=== PATIENT | female | born 1970 | race Caucasian/White ===

== ENCOUNTER 2020-02-26 11:00 | Outpatient (CLI) | payer OTHER, SELFPAY ==
--- NOTE | ~2020-02-26 | XR_ITS ---
EXAMINATION: XR sacrum coccyx min 2V INDICATION: Sacrococcygeal disorders TECHNIQUE: Three views of the sacrum and coccyx are obtained. COMPARISON: None available FINDINGS: No fracture is identified. The coccyx demonstrates slight posterior positioning relative to the sacrum which is within spectrum of normal radiographic appearance. There are phleboliths of the pelvis. IMPRESSION: 1. No acute osseous abnormality. Reviewed, dictated and finalized at location A.
== END 2020-02-26 11:01 | disposition home or self-care (01) ==
PROVIDERS: PCP Internal Medicine; Visit Provider Internal Medicine
DX: M53.3 Sacrococcygeal disorders, not elsewhere classified (principal)
CPT/HCPCS: 72220

== ENCOUNTER 2020-04-12 15:03 | Outpatient (CLI) | payer OTHER, SELFPAY ==
--- NOTE | ~2020-04-12 | MM_ITS ---
EXAMINATION: MM screening steffen BI w june HISTORY: Screening mammogram TECHNIQUE: Craniocaudal and mediolateral oblique 3-D tomosynthesis images were obtained and synthetic 2-D images were generated. CAD analysis was submitted and interpreted. COMPARISON: Comparison to multiple prior studies sequentially, with oldest reviewed study dated 08/06. BREAST PARENCHYMAL COMPOSITION: There are scattered areas of fibroglandular density. FINDINGS: Stable focal asymmetry in the right breast and coarse benign left breast calcifications. Th ere is no evidence of suspicious mass, calcification, or architectural distortion to suggest malignan cy in either breast. There has been no suspicious interval change. IMPRESSION: 1. No mammographic evidence of malignancy. 2. Recommend routine screening mammography in one year. BI-RADS Category 2: Benign finding(s). Reviewed, dictated and finalized at location A.
== END 2020-04-12 15:04 | disposition home or self-care (01) ==
LOC: ANHIMG 15:05
PROVIDERS: PCP Internal Medicine; Visit Provider Obstetrics & Gynecology
DX: Z12.31 Encounter for screening mammogram for malignant neoplasm of breast (principal)
CPT/HCPCS: 77063; 77067

== ENCOUNTER 2021-04-28 08:24 | Outpatient (CLI) | payer OTHER, SELFPAY ==
--- NOTE | ~2021-04-28 | MM_ITS ---
EXAMINATION: MM screening steffen BI w june HISTORY: Screening mammogram TECHNIQUE: Craniocaudal and mediolateral oblique 3-D tomosynthesis images were obtained and synthetic 2-D images were generated. CAD analysis was submitted and interpreted. COMPARISON: 04/12/2020, 12/12/2018, 05/24/2015 bilateral digital screening mammogram examinations BREAST PARENCHYMAL COMPOSITION: There are scattered areas of fibroglandular density. FINDINGS: There is a biopsy marker adjacent to a stable approximately 13 mm right breast mass; report edly benign biopsy. Stable circumscribed outer mid right approximately 6 mm lymph node. Stable partially calcified approximately 4.5 mm adenoma in the anterior outer mid right breast. Stabl e larger probably calcified fibroadenoma in the lower posterior outer mid left breast. Occasional sma ll low-density circumscribed benign opacities are noted on the left. There is no evidence of suspicious mass, calcification, or architectural distortion to suggest malign bert in either breast. There has been no suspicious interval change. IMPRESSION: 1. No mammographic evidence of malignancy; no significant change since 05/25/2015. 2. Recommend routine screening mammography in one year. BI-RADS Category 2: Benign finding(s). Reviewed, dictated and finalized at location A. IMPRESSION: 1. No mammographic evidence of malignancy; no significant change since 5. 2. Recommend routine screening mammography in one year. BI-RADS Category 2: Benign finding(s).
== END 2021-04-28 08:25 | disposition home or self-care (01) ==
LOC: ANHIMG 08:26
PROVIDERS: PCP Internal Medicine; Visit Provider Obstetrics & Gynecology
DX: Z12.31 Encounter for screening mammogram for malignant neoplasm of breast (principal)
CPT/HCPCS: 77063; 77067

== ENCOUNTER 2022-02-27 10:35 | Outpatient (CLI) | payer OTHER, SELFPAY ==
--- NOTE | ~2022-02-27 | US_ITS ---
EXAMINATION: US abdomen limited DATE: 02/27/2022 11:24 INDICATION: Personal history of malignant neoplasm TECHNIQUE: Multiple grayscale and Doppler ultrasound images of the abdomen were obtained. COMPARISON: None available FINDINGS: The head, body, and tail of the pancreas are normal. The liver is normal with normal echoge nicity and echotexture. No surface nodularity. Normal hepatopetal flow in the main portal vein. The g allbladder is normal with no abnormal wall thickening, pericholecystic fluid or stones. The normal co mmon bile duct measures 3 mm. There was no sonographic Quesada sign. Cystic lesions are noted in the u pper pole of the right kidney which measure up to 3.1 cm. IMPRESSION: 1. Normal sonographic study of the gallbladder. 2. Indeterminate cystic lesions of the right kidney upper pole. Consider dedicated kidney ultrasound. Reviewed, dictated and finalized at location F. IMPRESSION: 1. Normal sonographic study of the gallbladder. 2. Indeterminate cystic lesions of the right kidney upper pole. Consider ded[facility] benoit kidney ultrasound.
== END 2022-02-27 10:36 | disposition home or self-care (01) ==
PROVIDERS: PCP Internal Medicine; Visit Provider Nurse Practitioner
DX: Z85.09 Personal history of malignant neoplasm of other digestive organs (principal)
CPT/HCPCS: 76705

== ENCOUNTER 2022-03-13 09:48 | Outpatient (CLI) | payer OTHER, SELFPAY ==
--- NOTE | ~2022-03-13 | US_ITS ---
EXAMINATION: US renal BI DATE: 03/13/2022 10:44 INDICATION: N28.1 - Cyst of kidney, acquired TECHNIQUE: Multiple grayscale and Doppler ultrasound images of the abdomen were obtained. COMPARISON: Ultrasound abdomen 02/27/2022. FINDINGS: The right kidney measures 12.2 x 6.2 x 6.2 cm. The left kidney measures 11.1 x 5.3 x 6.9 cm. The kidn eys demonstrate normal parenchymal echogenicity.No sonographic evidence of nephrolithiasis. 2.9 cm lo bulated mid to lower pole mass with possible septations and mural nodularity. 3.0 cm simple right upp er pole cyst. No hydronephrosis. The bladder is unremarkable. IMPRESSION: 1. Indeterminate right mid/lower pole renal mass. Recommend CT or MRI with renal mass protocol for fu rther evaluation. Reviewed, dictated and finalized at [facility]. IMPRESSION: 1. Indeterminate right mid/lower pole renal mass. Recommend CT or MRI with arnulfo l mass protocol for further evaluation.
== END 2022-03-13 09:49 | disposition home or self-care (01) ==
PROVIDERS: PCP Internal Medicine; Visit Provider Nurse Practitioner
DX: N28.1 Cyst of kidney, acquired (principal)
CPT/HCPCS: 76775

== ENCOUNTER 2022-04-01 13:12 | Outpatient (CLI) | payer OTHER, SELFPAY ==
--- NOTE | ~2022-04-01 | MR_ITS ---
EXAMINATION: MR abdomen wo/w con DATE: 04/01/2022 14:37 INDICATION: Other specified disorders of kidney and ureter. Right kidney mass. TECHNIQUE: Magnetic resonance imaging (MRI) of the abdomen was performed without and with 18 mL Multi Nate intravenous contrast. COMPARISON: Ultrasound kidneys 03/13/2022 FINDINGS: The liver, gallbladder, and pancreas are normal. There is a 13 mm cyst in the spleen. The adrenal gla nds are normal. There are hemorrhagic cysts in the kidneys measuring up to 2.5 cm on the right. There is a 3.0 cm cyst in right kidney. There are no dilated loops of bowel. There are no pathologically e nlarged lymph nodes. There is no free intraperitoneal fluid. IMPRESSION: 1. Benign cysts in the kidneys. Reviewed, dictated and finalized at location A.
[2022-04-01 13:56] LABS: Estimated Glomerular Filt Rate > 60
== END 2022-04-01 13:13 | disposition home or self-care (01) ==
PROVIDERS: PCP Internal Medicine; Visit Provider Nurse Practitioner
DX: N28.89 Other specified disorders of kidney and ureter (principal)
CPT/HCPCS: 74183; A9577

== ENCOUNTER 2023-06-13 13:12 | Outpatient (CLI) | payer BC, SELFPAY ==
--- NOTE | ~2023-06-13 | US_ITS ---
Duplex Sonography of the right extremity: Indication: Pain Findings: Sagittal and transverse B-mode images as well as color-flow imaging were performed on the r ight femoral and popliteal veins. B-mode examination was done without and with compression in the tr ansverse plane. There is good visualization of the common femoral, proximal profunda femoral, superf icial femoral, greater saphenous, and popliteal veins. Normal flow was seen on color-flow imaging. N ormal compressibility was demonstrated. Visualized calf veins are also patent. Impression: No evidence of deep vein thrombosis involving the right lower extremity. Reviewed, dictated and finalized at location M. Impression: No evidence of deep vein thrombosis involving the right lower extremity.
--- NOTE | ~2023-06-13 | XR_ITS ---
Right Knee Technique: AP, lateral, and sunrise views were obtained. Clinical History: Pain Findings: No fracture or dislocation is seen. There is medial compartment hemiarthroplasty present. T here is mild to moderate degenerative spurring of the lateral joint line and patellofemoral compartme nt. Soft tissues are unremarkable. No joint effusion is seen. Impression: No acute fracture or dislocation. Medial compartment hemiarthroplasty. Mild to moderate degenerative change of the lateral and patellofemoral compartments, as above. Reviewed, dictated and finalized at location M. Impression: No acute fracture or dislocation. Medial compartment hemiarthroplasty. Mild to moderate degenerative change of the lateral and patellofemoral compartm ents, as above.
== END 2023-06-13 13:13 | disposition home or self-care (01) ==
PROVIDERS: PCP Internal Medicine; Visit Provider Nurse Practitioner
DX: M79.604 Pain in right leg (principal); M25.569 Pain in unspecified knee
CPT/HCPCS: 73564; 93971

== ENCOUNTER 2023-08-24 08:07 | Outpatient (CLI) | payer BC, SELFPAY ==
[2023-08-24 15:00] LABS: Basophils Percent Auto 0.4 % (0.2-1.2); Eosinophils Absolute Auto 0.1 K/mm3 (0-0.3); Eosinophils Percent Auto 0.9 % (0-4.4); Hematocrit 40.8 % (37.0-47.0); Hemoglobin 13.1 g/dL (12.0-15.0); Immature Granulocyte Absolute 0.02 K/mm3 (0.00-0.031); Immature Granulocyte Percent A 0.3 % (0-0.5); Lymphocytes Absolute Auto 2.19 K/mm3 (0.9-3.2); Mean Corpuscular HGB Conc 32.1 g/dl (32-36); Mean Corpuscular Hemoglobin 28.9 pg (26-34); Mean Corpuscular Volume 89.9 fl (80-100); Mean Platelet Volume 10.1 fl (7.4-10.4); Monocytes Absolute Auto 0.7 K/mm3 (0.1-0.6); Monocytes Percent Auto 9.3 % (2.6-8.5); Neutrophils Absolute Auto 4.8 K/mm3 (1.3-6.7); Neutrophils Percent Auto 61.1 % (45.5-73.1); Platelet Count Result 284 k/mm3 (150-375); Red Blood Count 4.54 M/mm3 (4.2-5.4); Red Cell Distribution Width 13.5 % (11.5-14.5); White Blood Count 7.8 K/mm3 (4.5-10.0)
[2023-08-24 15:05] LABS: Alanine Aminotransferase 28 U/L (6-35); Albumin Level 4.4 g/dL (3.5-5.1); Alkaline Phosphatase 112 U/L (38-126); Anion Gap 9 mmol/L (8-16); Aspartate Amino Transferase 40 U/L (14-36); Bilirubin,Total 0.5 mg/dL (0.2-1.3); Blood Urea Nitrogen 14 mg/dL (7-17); Calcium 9.3 mg/dL (8.4-10.2); Carbon Dioxide 27 mmol/L (22-30); Chloride 104 mmol/L (98-107); Cholesterol 236 mg/dL (0-200); Estimated Glomerular Filt Rate > 60; Glucose 100 mg/dL (65-110); HDL Direct 37 mg/dL; Potassium 3.6 mmol/L (3.4-5.0); Sodium 140 mmol/L (137-145); Triglycerides 192 mg/dL (<150)
[2023-08-24 15:16] LABS: LDL Cholesterol Direct 141 mg/dL
[2023-08-24 16:44] LABS: Vitamin D 25 Hydroxy 37.6 ng/mL
== END 2023-08-24 08:08 | disposition home or self-care (01) ==
LOC: ANHGOSHLAB 08:09
PROVIDERS: PCP Internal Medicine; Visit Provider Clinical Nurse Specialist
DX: Z13.228 Encounter for screening for other metabolic disorders (principal); E55.9 Vitamin D deficiency, unspecified; I10 Essential (primary) hypertension; E78.5 Hyperlipidemia, unspecified
CPT/HCPCS: 36415; 80053; 80061; 82306; 84443; 85025

== ENCOUNTER 2023-12-13 16:07 | Outpatient (CLI) | payer OTHER, SELFPAY ==
--- NOTE | ~2023-12-13 | CT_ITS ---
EXAMINATION:CT diagnostic chest wo con DATE: 12/13/2023 16:40 INDICATION: Solitary pulmonary nodule. TECHNIQUE: Computed tomography (CT) of the chest was performed without intravenous contrast. Automate d exposure control and iterative reconstruction technique were employed. The dose-length product (DLP ) was 238.44 mGy-cm. COMPARISON: Abdomen MRI 04/01/2022 FINDINGS: There is a 4 mm nodule in right lung upper lobe. There is a 4 mm nodule in left lower lobe. There is minimal atelectasis in the lungs. No pleural effusion. The heart size is normal. No pericar dial effusion. There is a 2.3 cm hemorrhagic cyst in right kidney. There is moderate thoracic spondyl osis. IMPRESSION: 1. Small pulmonary nodules, likely benign. 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
== END 2023-12-13 16:08 | disposition home or self-care (01) ==
LOC: ANHIMG 16:14
PROVIDERS: PCP Internal Medicine; Visit Provider Nurse Practitioner
DX: R91.8 Other nonspecific abnormal finding of lung field (principal)
CPT/HCPCS: 71250

== ENCOUNTER 2024-01-04 09:06 | Outpatient (CLI) | payer OTHER, SELFPAY ==
[2024-01-04 19:27] LABS: Free T4 Free Thyroxine 1.19 ng/mL (0.78-2.19)
[2024-01-04 19:47] LABS: Thyroid Stimulating Hormone 0.888 uIU/mL (0.465-4.680)
[2024-01-09 07:32] LABS: Triiodothyronine T3 Free 3.1 pg/mL (2.3-4.2)
== END 2024-01-04 09:07 | disposition home or self-care (01) ==
LOC: ANHGOSHLAB 09:07
PROVIDERS: PCP Internal Medicine; Visit Provider Nurse Practitioner
DX: R53.83 Other fatigue (principal)
CPT/HCPCS: 36415; 84439; 84443; 84481

== ENCOUNTER 2024-01-31 09:12 | Outpatient (CLI) | payer OTHER, SELFPAY | END 2024-01-31 09:13 | disposition home or self-care (01) | LOC: ANHAUDIO 09:13 | PROVIDERS: PCP Internal Medicine; Visit Provider Nurse Practitioner | DX: H93.19 Tinnitus, unspecified ear (principal); H90.3 Sensorineural hearing loss, bilateral | CPT/HCPCS: 92557; 92567 ==

== ENCOUNTER 2025-01-14 08:30 | Outpatient (CLI) | payer OTHER, SELFPAY ==
--- OUTSIDE RECORDS SUMMARY | 2025-01-14 08:51 | XMS_ITS | Encounter Summary ---
Author Organization [facility] Address [address] [place] [address] Care Team Providers Care Photogrammetric Stereo Compiler Name Role Phone Lorenzo Lindsay MD Primary Care Provider [phone] Edilberto Estrada DO Primary Care Provider [phone] Lorenzo Lindsay MD Primary Care Provider [phone] Edilberto Estrada DO Primary Care Provider [phone] Encounter Details Date Type Department Care Team (Late st Contact Info) Description 12/09/2022 Ophth Exam [facility] [address] [place] [address] Edie Casillas DO [address] [place] [id number] Social History Tobacco Use Types Packs/Day Years Used Date Smoking Tobacco: Never Smokeless Tobacco: Never Alcohol Use Standard Drinks/Week Comments Not Currently 0 (1 standard drink = 0.6 oz pur e alcohol) AUDIT-C Answer Date Recorded Q1: How often do you have a drink containing alc ohol? Monthly or less 12/06/2022 Average Number of Drinks Not on file 023 Frequency of Binge Drinking Not on file 11/2022 Overall Financial Resource Strain (CARDIA) Answe r Date Recorded How hard is it for you to pa y for the very basics like food, housing, medical care, and heating? Not hard at all 12/08/2022 [facility] [place] [facility] - Occupational Stress Questionnaire Answer Date Recorded Do you feel stress - tense, restless, nervous, or anxious, or unable to sleep at night because your mind is troubled all the time - these days? Not at all 12/08/2022 Hunger Vital Sign Answer Date Recorded Within the past 12 months, y ou worried that your food would run out before you got the money to buy more. Never true 12/08/19 23 Within the past 12 months, t he food you bought just didn't last and you didn't have money to get more. Never true 12/08/2022 PRAPARE - Transportation Answer Date Re corded In the past 12 months, has l ack of transportation kept you from medical appointments or from getting medications? No 01/2023 In the past 12 months, has l ack of transportation kept you from meetings, work, or from getting things needed for daily living? No 12/08/2022 Housing Stability Vital Sign Answer Dimitris e Recorded In the last 12 months, was t here a time when you were not able to pay the mortgage or rent on time? No 12/08/2022 In the last 12 months, how many places have you lived? 1 12/08/2022 In the last 12 months, was t here a time when you did not have a steady place to sleep or slept in a chcf (including now)? No 12/08/2022 Sex and Gender Information Value Date Recorded Sex Assigned at Not on file Gender Identity Not on file Sexual Orientation Not on file documented as of this encounter Functional Status Functional Status Response Date of Assess ment Is person deaf or have serious hearing difficult y? No 12/08/2022 Is person blind or have serious difficulty seein g? No 12/08/2022 Does person have serious dif ficulty walking/climbing stairs? No 12/08/2022 Does person have difficulty dressing/bathing? No 12/08/2022 Does person have difficulty doing errands alone? No 12/08/2022 Cognitive Status Response Date of Assessm ent Does person have difficulty concentrating/remembering/making decisions? No 12/08/2022 documented as of this encounter Plan of Treatment Not on file documented as of this encounter Visit Diagnoses Not on filedocumented in this encounter Care Teams Photogrammetric Stereo Compiler Relationship Specialty Start Date End Date Lorenzo Lindsay MD [address] [place] [phone] PCP - General 03/21/18 12/20/22 Edilberto Estrada DO [address] [place] [address] PCP - General 12/21/22 01/10/23 Lorenzo Lindsay MD [address] [place] [phone] PCP - General 01/11/23 01/24/23 Edilberto Estrada DO [address] [place] [phone] PCP - General 01/25/23 documented as of this encounter
--- OUTSIDE RECORDS SUMMARY | 2025-01-14 08:52 | XMS_ITS ---
Author Organization [facility] Address [address] [place] [address] Care Team Providers Care Channel Specialist Name Role Phone Tiana Toussaint Primary Care Provider Kenroy Montelongo Unavailable [phone] Tiana Toussaint MD Unavailable Unavailable REASON FOR VISIT MANUEL Vital Signs Temperature 98 degrees Fahrenheit 01/22/2024 Weight 206 lbs 01/22/2024 Weight-kg 93.44 kg 01/22/2024 Encounters Encounter Location Date Provider Diagnosis [facility] [address] [place] [address] 01/22/2024 Kenroy Montelongo Plan Of Treatment No Information Progress Notes * Stephanie MAURERDOB:1970 (54 yo F)Acc No.[id number]:01/22/2024 Medical Examination Patient: Stephanie AMOS Provider: Nguyen MONTELONGO MD :1970 A ge:54 Y S ex:Female Date:01/22/2024 Address:[address] [place] [address] Pcp:Tiana Toussaint Subjective: * Chief Complaints: * 1 . MANUEL. * Medical History: Objective: * Vitals: T emp:98F, Wt:206lbs, Wt-k.44 kg. Assessment: Plan: * Treatment: * Billing Information: * Visit Code: * Procedure Codes: * Electronic signature of Darrel Montelongo MD on 01/14/2025 at 08:52 AM CDT Sign off status: Pending * Provider: Nguyen MONTELONGO MD Date: 0 01/22/2024 Generated for Isaak spaulding/Fernando/Normaitting on: 0 01/14/2025 08:52 AM CDT
--- OUTSIDE RECORDS SUMMARY | 2025-01-14 08:52 | XMS_ITS ---
Author Organization [facility] [employer] Address [address] [facility] [address] [place] [address] Care Team Providers Care Mitering Machine Operator Name Role Phone Eloisa Astorga Unavailable [phone] Encounters Encounter Location Date Provider Diagnosis [facility] [employer] [facility] [address] [facility] [address] [place] [address] 06/16/2024 Eloisa Astorga Plan Of Treatment No Information Progress Notes * JADEN GAYLE ADOB: [birth year] (54 yo F)Acc No.[id number]:06/16/2024 Patient: RITA AMOSBERODILIA Cedillo :1970 A ge:54 Y S ex:Female Address:[address] [place] [address], [phone] Subjective: * Chief Complaints: * * Medical History: * Surgical History: * Hospitalization/Major Diagno stic Procedure: * Medications: Objective: * Vitals: * Physical Examination: Assessment: Plan: * Treatment: * Procedure Codes: * true * Date: Generated for Printi ng/Faxing/eTransmitting on: 0 01/14/2025 08:51 AM CDT
--- OUTSIDE RECORDS SUMMARY | 2025-01-14 08:52 | XMS_ITS | Patient Health Record ---
Author Organization [facility] Address [address] [place] [address] Care Team Providers Care Tube Closing Machine Operator Name Role Phone Tiana Toussaint Primary Care Provider Kenroy Thibodeaux Unavailable [phone] Tiana Toussaint MD Unavailable Unavailable Reason For Referral No Information Vital Signs Temperature 98 degrees Fahrenheit 01/22/2024 Weight-kg 93.44 kg 01/22/2024 Weight 206 lbs 01/22/2024 Encounters Encounter Location Date Provider Diagnosis [facility] [address] [place] [address] 01/22/2024 Kenroy Thibodeaux [facility] [address] [place] [address] 01/22/2024 Kenroy Thibodeaux Radiculopathy, lumbar region M54.16 and Wedge compression fracture of third lumbar vertebra, sequela S32.030S [facility] [address] [place] [address] 02/03/2024 Kenroy Thibodeaux Assessments Encounter Date Diagnosis (ICD Code) Assessment Notes Treatment Notes Treatment Clinical Notes Section Notes 01/22/2024 Radiculopathy, lumbar region (ICD-10 - M54.16) 01/22/2024 Wedge compression fracture of third lumbar vertebra, sequela (ICD-10 - S32.030S) Plan Of Treatment No Information Insurance Providers Payer Name Payer Address Payer Phone Subscriber Number Group Number Insured Name Patient Relationship to Insured Coverage Start Date Coverage End Date [employer] [address] FRANCESCO Villarreal [id number] Stephanie Maurer Self - patient is the insured
--- OUTSIDE RECORDS SUMMARY | 2025-01-14 08:52 | XMS_ITS ---
Author Organization [facility] [employer] Address [address] [facility] [address] [place] [address] Care Team Providers Care Magnetic Grinder Operator Name Role Phone Eloisa Astorga Unavailable [phone] REASON FOR VISIT Life Care Plan Encounters Encounter Location Date Provider Diagnosis [facility] [employer] [facility] [address] [facility] [address] [place] [address] 06/03/2024 Eloisa Astorga Plan Of Treatment No Information Progress Notes * JADEN GAYLE ADOB: [birth year] (54 yo F)Acc No.[id number]:06/03/2024 Patient: Farzana PICKENS JADEN Cedillo :1970 A ge:54 Y S ex:Female Address:[address] [place] [address], [phone] * true * Date: Generated for Printi chelly/Briang/eTransmitting on: 0 01/14/2025 08:52 AM CDT
--- OUTSIDE RECORDS SUMMARY | 2025-01-14 08:53 | XMS_ITS | Patient Health Summary ---
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 CONTRAST, CT LUMBAR SPINE WO CONTRAST, CT THORACIC SPINE WO CONTRAST, CT CERVICAL SPINE WO CONTRAST, CT HEAD WO CONTRAST, DATE/TIME OF EXAM: 12/06/2022 8:43 PM, LOCATION [facility] INDICATION: Trauma ADDITIONAL CLINICAL INFORMATION: Ordering Provider Reason For Exam: Trauma COMPARISON: None. TECHNIQUE: CT of the head, cervical spine, and maxillofacial bones, orbits, and paranasal sinuses was performed without contrast according to standard protocol. Reformatted axial, sagittal, and coronal images of the thoracic and lumbar spine were obtained by the technologist from a concurrently performed body CT and sent to the workstation for review. FINDINGS: Head: No acute intra- or extra-axial fluid collections are identified. The ventricles are of normal size, shape, and morphology. The basilar cisterns are patent. No mass effect or midline shift is seen. The lucas-white matter differentiation is normal. There is vascular calcification of the carotid siphons. No acute calvarial fracture is identified. Maxillofacial: The orbits appear normal. The paranasal sinuses are clear. The hard palate, mandible, and temporomandibular joints appear normal. No acute facial bone fractures are identified. The mastoid air cells are clear. No soft tissue abnormality is identified. Cervical spine: The alignment is normal. Vertebral bodies are normal in height without evidence of acute fracture. Other than middle atlantoaxial joint osteoarthritis, the craniocervical junction appears normal. There is mild degenerative disc disease. No central canal stenosis is seen. There are varying degrees of mild facet osteoarthritis. The uncovertebral joints appear normal. No neural foraminal stenosis is seen. No soft tissue abnormality is identified. Thoracic spine: The alignment is normal. Vertebral bodies are normal in height without evidence of acute fracture. The intervertebral discs appear normal. No central canal stenosis is seen. The facets appear normal. No neural foraminal stenosis is seen. No soft tissue abnormality is identified. Lumbar spine: There is an acute compression fracture of the superior endplate of L2 vertebral body with no significant height loss. There is a 4.4-mm peripherally sclerotic lesion in the L3 vertebral body The alignment is normal. The intervertebral discs appear normal. Moderate central canal stenosis is seen at L4-L5 due to diffuse disc bulge and ligamentum flavum hypertrophy. The facets appear normal. No neural foraminal stenosis is seen. Cysts are seen in the bilateral kidneys. Procedure Note Cleve You MD - 12/06/2022 PROCEDURE: CT FACIAL BONES WO CONTRAST, CT LUMBAR SPINE WO CONTRAST, CT THORACIC SPINE WO CONTRAST, CT CERVICAL SPINE WO CONTRAST, CT HEAD WO CONTRAST, DATE/TIME OF EXAM: 12/06/2022 8:43 PM, LOCATION [facility] INDICATION: Trauma ADDITIONAL CLINICAL INFORMATION: Ordering Provider Reason For Exam: Trauma COMPARISON: None. TECHNIQUE: CT of the head, cervical spine, and maxillofacial bones,orbits, and paranasal sinuses was performed without contrast according tostandard protocol. Reformatted axial, sagittal, and coronal images of thethoracic and lumbar spine were obtained by the technologist from a concurrently performed body CT and sent to the workstation for review. FINDINGS: Head: No acute intra- or extra-axial fluid collections are identified. The ventricles are of normal size, shape, and morphology. The basilarcisterns are patent. No mass effect or midline shift is seen. The lucas-whitematter differentiation is normal. There is vascular calcification of thecarotid siphons. No acute calvarial fracture is identified. Maxillofacial: The orbits appear normal. The paranasal sinuses are clear. The hardpalate, mandible, and temporomandibular joints appear normal. No acute facialbone fractures are identified. The mastoid air cells are clear. No softtissue abnormality is identified. Cervical spine: The alignment is normal. Vertebral bodies are normal in height without evidence of acute fracture. Other than middle atlantoaxial joint osteoarthritis, the craniocervical junction appears normal. There ismild degenerative disc disease. No central canal stenosis is seen. There are varying degrees of mild facet osteoarthritis. The uncovertebral joints appear normal. No neural foraminal stenosis is seen. No soft tissue abnormality is identified. Thoracic spine: The alignment is normal. Vertebral bodies are normal in height without evidence of acute fracture. The intervertebral discs appear normal. No central canal stenosis is seen. The facets appear normal. No neural foraminal stenosis is seen. No soft tissue abnormality is identified. Lumbar spine: There is an acute compression fracture of the superior endplate of L2 vertebral body with no significant height loss. There is a 4.4-mm peripherally sclerotic lesion in the L3 vertebral body The alignment is normal. The intervertebral discs appear normal.Moderate central canal stenosis is seen at L4-L5 due to diffuse disc bulge and ligamentum flavum hypertrophy. The facets appear normal. No neural foraminal stenosis is seen. Cysts are seen in the bilateral kidneys. IMPRESSION: 1.No acute intracranial process. 2.No acute facial bone fractures identified. 3.Acute compression fracture of the superior endplate of L2 vertebralbody with no significant height loss. 4.Indeterminate 4.4-mm peripherally sclerotic lesion in the L3 vertebral body (Bone-RADS 2). Consider MRI with contrast for further characterization. 5.No evidence of acute fracture in the cervical or thoracic spine. > Dictated by Chilango Mccall MD (resident services coordinator) I, Cleve You MD have personally reviewed and interpreted this examination/study. > Interpreting Provider: Cleve You MD on 12/06/2022 10:18 PM Ana Coleman MD CT ORDERABLES * CT THORACIC SPINE WO CONTRAST - T/L-spine trauma, spine fracture (12/06/2022 8:41 PM SPECIAL EDUCATION ADMINISTRATOR) Anatomical Region Laterality Modality Spine Computed Tomogra phy 12/06/2022 8:59 PM SPECIAL EDUCATION ADMINISTRATOR Impressions 12/06/2022 10:18 PM SPECIAL EDUCATION ADMINISTRATOR IMPRESSION: 1.No acute intracranial process. 2.No acute facial bone fractures identified. 3.Acute compression fracture of the superior endplate of L2 vertebral body with no significant height loss. 4.Indeterminate 4.4-mm peripherally sclerotic lesion in the L3 vertebral body (Bone-RADS 2). Consider MRI with contrast for further characterization. 5.No evidence of acute fracture in the cervical or thoracic spine. > Dictated by Chilango Mccall MD (resident services coordinator) I, Cleve You MD have personally reviewed and interpreted this examination/study. > Interpreting Provider: Cleve You MD on 12/06/2022 10:18 PM Narrative 12/06/2022 10:18 PM SPECIAL EDUCATION ADMINISTRATOR PROCEDURE: CT FACIAL BONES WO CONTRAST, CT LUMBAR SPINE WO CONTRAST, CT THORACIC SPINE WO CONTRAST, CT CERVICAL SPINE WO CONTRAST, CT HEAD WO CONTRAST, DATE/TIME OF EXAM: 12/06/2022 8:43 PM, LOCATION [facility] INDICATION: Trauma ADDITIONAL CLINICAL INFORMATION: Ordering Provider Reason For Exam: Trauma COMPARISON: None. TECHNIQUE: CT of the head, cervical spine, and maxillofacial bones, orbits, and paranasal sinuses was performed without contrast according to standard protocol. Reformatted axial, sagittal, and coronal images of the thoracic and lumbar spine were obtained by the technologist from a concurrently performed body CT and sent to the workstation for review. FINDINGS: Head: No acute intra- or extra-axial fluid collections are identified. The ventricles are of normal size, shape, and morphology. The basilar cisterns are patent. No mass effect or midline shift is seen. The lucas-white matter differentiation is normal. There is vascular calcification of the carotid siphons. No acute calvarial fracture is identified. Maxillofacial: The orbits appear normal. The paranasal sinuses are clear. The hard palate, mandible, and temporomandibular joints appear normal. No acute facial bone fractures are identified. The mastoid air cells are clear. No soft tissue abnormality is identified. Cervical spine: The alignment is normal. Vertebral bodies are normal in height without evidence of acute fracture. Other than middle atlantoaxial joint osteoarthritis, the craniocervical junction appears normal. There is mild degenerative disc disease. No central canal stenosis is seen. There are varying degrees of mild facet osteoarthritis. The uncovertebral joints appear normal. No neural foraminal stenosis is seen. No soft tissue abnormality is identified. Thoracic spine: The alignment is normal. Vertebral bodies are normal in height without evidence of acute fracture. The intervertebral discs appear normal. No central canal stenosis is seen. The facets appear normal. No neural foraminal stenosis is seen. No soft tissue abnormality is identified. Lumbar spine: There is an acute compression fracture of the superior endplate of L2 vertebral body with no significant height loss. There is a 4.4-mm peripherally sclerotic lesion in the L3 vertebral body The alignment is normal. The intervertebral discs appear normal. Moderate central canal stenosis is seen at L4-L5 due to diffuse disc bulge and ligamentum flavum hypertrophy. The facets appear normal. No neural foraminal stenosis is seen. Cysts are seen in the bilateral kidneys. Procedure Note Cleve You MD - 12/06/2022 PROCEDURE: CT FACIAL BONES WO CONTRAST, CT LUMBAR SPINE WO CONTRAST, CT THORACIC SPINE WO CONTRAST, CT CERVICAL SPINE WO CONTRAST, CT HEAD WO CONTRAST, DATE/TIME OF EXAM: 12/06/2022 8:43 PM, LOCATION [facility] INDICATION: Trauma ADDITIONAL CLINICAL INFORMATION: Ordering Provider Reason For Exam: Trauma COMPARISON: None. TECHNIQUE: CT of the head, cervical spine, and maxillofacial bones,orbits, and paranasal sinuses was performed without contrast according tostandard protocol. Reformatted axial, sagittal, and coronal images of thethoracic and lumbar spine were obtained by the technologist from a concurrently performed body CT and sent to the workstation for review. FINDINGS: Head: No acute intra- or extra-axial fluid collections are identified. The ventricles are of normal size, shape, and morphology. The basilarcisterns are patent. No mass effect or midline shift is seen. The lucas-whitematter differentiation is normal. There is vascular calcification of thecarotid siphons. No acute calvarial fracture is identified. Maxillofacial: The orbits appear normal. The paranasal sinuses are clear. The hardpalate, mandible, and temporomandibular joints appear normal. No acute facialbone fractures are identified. The mastoid air cells are clear. No softtissue abnormality is identified. Cervical spine: The alignment is normal. Vertebral bodies are normal in height without evidence of acute fracture. Other than middle atlantoaxial joint osteoarthritis, the craniocervical junction appears normal. There ismild degenerative disc disease. No central canal stenosis is seen. There are varying degrees of mild facet osteoarthritis. The uncovertebral joints appear normal. No neural foraminal stenosis is seen. No soft tissue abnormality is identified. Thoracic spine: The alignment is normal. Vertebral bodies are normal in height without evidence of acute fracture. The intervertebral discs appear normal. No central canal stenosis is seen. The facets appear normal. No neural foraminal stenosis is seen. No soft tissue abnormality is identified. Lumbar spine: There is an acute compression fracture of the superior endplate of L2 vertebral body with no significant height loss. There is a 4.4-mm peripherally sclerotic lesion in the L3 vertebral body The alignment is normal. The intervertebral discs appear normal.Moderate central canal stenosis is seen at L4-L5 due to diffuse disc bulge and ligamentum flavum hypertrophy. The facets appear normal. No neural foraminal stenosis is seen. Cysts are seen in the bilateral kidneys. IMPRESSION: 1.No acute intracranial process. 2.No acute facial bone fractures identified. 3.Acute compression fracture of the superior endplate of L2 vertebralbody with no significant height loss. 4.Indeterminate 4.4-mm peripherally sclerotic lesion in the L3 vertebral body (Bone-RADS 2). Consider MRI with contrast for further characterization. 5.No evidence of acute fracture in the cervical or thoracic spine. > Dictated by Chilango Mccall MD (resident services coordinator) I, Cleve You MD have personally reviewed and interpreted this examination/study. > Interpreting Provider: Cleve You MD on 12/06/2022 10:18 PM Ana Coleman MD CT ORDERABLES * CT CERVICAL SPINE WO CONTRAST - C-Spine Trauma, Spine fracture (12/06/2022 8:41 PM SPECIAL EDUCATION ADMINISTRATOR) Anatomical Region Laterality Modality Spine Computed Tomogra phy 12/06/2022 8:59 PM SPECIAL EDUCATION ADMINISTRATOR Impressions 12/06/2022 10:18 PM SPECIAL EDUCATION ADMINISTRATOR IMPRESSION: 1.No acute intracranial process. 2.No acute facial bone fractures identified. 3.Acute compression fracture of the superior endplate of L2 vertebral body with no significant height loss. 4.Indeterminate 4.4-mm peripherally sclerotic lesion in the L3 vertebral body (Bone-RADS 2). Consider MRI with contrast for further characterization. 5.No evidence of acute fracture in the cervical or thoracic spine. > Dictated by Chilango Mccall MD (resident services coordinator) I, Cleve You MD have personally reviewed and interpreted this examination/study. > Interpreting Provider: Cleve You MD on 12/06/2022 10:18 PM Narrative 12/06/2022 10:18 PM SPECIAL EDUCATION ADMINISTRATOR PROCEDURE: CT FACIAL BONES WO CONTRAST, CT LUMBAR SPINE WO CONTRAST, CT THORACIC SPINE WO CONTRAST, CT CERVICAL SPINE WO CONTRAST, CT HEAD WO CONTRAST, DATE/TIME OF EXAM: 12/06/2022 8:43 PM, LOCATION [facility] INDICATION: Trauma ADDITIONAL CLINICAL INFORMATION: Ordering Provider Reason For Exam: Trauma COMPARISON: None. TECHNIQUE: CT of the head, cervical spine, and maxillofacial bones, orbits, and paranasal sinuses was performed without contrast according to standard protocol. Reformatted axial, sagittal, and coronal images of the thoracic and lumbar spine were obtained by the technologist from a concurrently performed body CT and sent to the workstation for review. FINDINGS: Head: No acute intra- or extra-axial fluid collections are identified. The ventricles are of normal size, shape, and morphology. The basilar cisterns are patent. No mass effect or midline shift is seen. The lucas-white matter differentiation is normal. There is vascular calcification of the carotid siphons. No acute calvarial fracture is identified. Maxillofacial: The orbits appear normal. The paranasal sinuses are clear. The hard palate, mandible, and temporomandibular joints appear normal. No acute facial bone fractures are identified. The mastoid air cells are clear. No soft tissue abnormality is identified. Cervical spine: The alignment is normal. Vertebral bodies are normal in height without evidence of acute fracture. Other than middle atlantoaxial joint osteoarthritis, the craniocervical junction appears normal. There is mild degenerative disc disease. No central canal stenosis is seen. There are varying degrees of mild facet osteoarthritis. The uncovertebral joints appear normal. No neural foraminal stenosis is seen. No soft tissue abnormality is identified. Thoracic spine: The alignment is normal. Vertebral bodies are normal in height without evidence of acute fracture. The intervertebral discs appear normal. No central canal stenosis is seen. The facets appear normal. No neural foraminal stenosis is seen. No soft tissue abnormality is identified. Lumbar spine: There is an acute compression fracture of the superior endplate of L2 vertebral body with no significant height loss. There is a 4.4-mm peripherally sclerotic lesion in the L3 vertebral body The alignment is normal. The intervertebral discs appear normal. Moderate central canal stenosis is seen at L4-L5 due to diffuse disc bulge and ligamentum flavum hypertrophy. The facets appear normal. No neural foraminal stenosis is seen. Cysts are seen in the bilateral kidneys. Procedure Note Cleve You MD - 12/06/2022 PROCEDURE: CT FACIAL BONES WO CONTRAST, CT LUMBAR SPINE WO CONTRAST, CT THORACIC SPINE WO CONTRAST, CT CERVICAL SPINE WO CONTRAST, CT HEAD WO CONTRAST, DATE/TIME OF EXAM: 12/06/2022 8:43 PM, LOCATION [facility] INDICATION: Trauma ADDITIONAL CLINICAL INFORMATION: Ordering Provider Reason For Exam: Trauma COMPARISON: None. TECHNIQUE: CT of the head, cervical spine, and maxillofacial bones,orbits, and paranasal sinuses was performed without contrast according tostandard protocol. Reformatted axial, sagittal, and coronal images of thethoracic and lumbar spine were obtained by the technologist from a concurrently performed body CT and sent to the workstation for review. FINDINGS: Head: No acute intra- or extra-axial fluid collections are identified. The ventricles are of normal size, shape, and morphology. The basilarcisterns are patent. No mass effect or midline shift is seen. The lucas-whitematter differentiation is normal. There is vascular calcification of thecarotid siphons. No acute calvarial fracture is identified. Maxillofacial: The orbits appear normal. The paranasal sinuses are clear. The hardpalate, mandible, and temporomandibular joints appear normal. No acute facialbone fractures are identified. The mastoid air cells are clear. No softtissue abnormality is identified. Cervical spine: The alignment is normal. Vertebral bodies are normal in height without evidence of acute fracture. Other than middle atlantoaxial joint osteoarthritis, the craniocervical junction appears normal. There ismild degenerative disc disease. No central canal stenosis is seen. There are varying degrees of mild facet osteoarthritis. The uncovertebral joints appear normal. No neural foraminal stenosis is seen. No soft tissue abnormality is identified. Thoracic spine: The alignment is normal. Vertebral bodies are normal in height without evidence of acute fracture. The intervertebral discs appear normal. No central canal stenosis is seen. The facets appear normal. No neural foraminal stenosis is seen. No soft tissue abnormality is identified. Lumbar spine: There is an acute compression fracture of the superior endplate of L2 vertebral body with no significant height loss. There is a 4.4-mm peripherally sclerotic lesion in the L3 vertebral body The alignment is normal. The intervertebral discs appear normal.Moderate central canal stenosis is seen at L4-L5 due to diffuse disc bulge and ligamentum flavum hypertrophy. The facets appear normal. No neural foraminal stenosis is seen. Cysts are seen in the bilateral kidneys. IMPRESSION: 1.No acute intracranial process. 2.No acute facial bone fractures identified. 3.Acute compression fracture of the superior endplate of L2 vertebralbody with no significant height loss. 4.Indeterminate 4.4-mm peripherally sclerotic lesion in the L3 vertebral body (Bone-RADS 2). Consider MRI with contrast for further characterization. 5.No evidence of acute fracture in the cervical or thoracic spine. > Dictated by Chilango Mccall MD (resident services coordinator) Cleve Ordoñez MD have personally reviewed and interpreted this examination/study. > Interpreting Provider: Cleve You MD on 12/06/2022 10:18 PM Ana Coleman MD CT ORDERABLES * CT FACIAL BONES WO CONTRAST - Facial trauma, fx suspected, blunt (12/06/2022 8:41 PM SPECIAL EDUCATION ADMINISTRATOR) Anatomical Region Laterality Modality Head Computed Tomogra phy 12/06/2022 8:59 PM SPECIAL EDUCATION ADMINISTRATOR Impressions 12/06/2022 10:18 PM SPECIAL EDUCATION ADMINISTRATOR IMPRESSION: 1.No acute intracranial process. 2.No acute facial bone fractures identified. 3.Acute compression fracture of the superior endplate of L2 vertebral body with no significant height loss. 4.Indeterminate 4.4-mm peripherally sclerotic lesion in the L3 vertebral body (Bone-RADS 2). Consider MRI with contrast for further characterization. 5.No evidence of acute fracture in the cervical or thoracic spine. > Dictated by Chilango Mccall MD (resident services coordinator) Cleve Ordoñez MD have personally reviewed and interpreted this examination/study. > Interpreting Provider: Cleve You MD on 12/06/2022 10:18 PM Narrative 12/06/2022 10:18 PM SPECIAL EDUCATION ADMINISTRATOR PROCEDURE: CT FACIAL BONES WO CONTRAST, CT LUMBAR SPINE WO CONTRAST, CT THORACIC SPINE WO CONTRAST, CT CERVICAL SPINE WO CONTRAST, CT HEAD WO CONTRAST, DATE/TIME OF EXAM: 12/06/2022 8:43 PM, LOCATION [facility] INDICATION: Trauma ADDITIONAL CLINICAL INFORMATION: Ordering Provider Reason For Exam: Trauma COMPARISON: None. TECHNIQUE: CT of the head, cervical spine, and maxillofacial bones, orbits, and paranasal sinuses was performed without contrast according to standard protocol. Reformatted axial, sagittal, and coronal images of the thoracic and lumbar spine were obtained by the technologist from a concurrently performed body CT and sent to the workstation for review. FINDINGS: Head: No acute intra- or extra-axial fluid collections are identified. The ventricles are of normal size, shape, and morphology. The basilar cisterns are patent. No mass effect or midline shift is seen. The lucas-white matter differentiation is normal. There is vascular calcification of the carotid siphons. No acute calvarial fracture is identified. Maxillofacial: The orbits appear normal. The paranasal sinuses are clear. The hard palate, mandible, and temporomandibular joints appear normal. No acute facial bone fractures are identified. The mastoid air cells are clear. No soft tissue abnormality is identified. Cervical spine: The alignment is normal. Vertebral bodies are normal in height without evidence of acute fracture. Other than middle atlantoaxial joint osteoarthritis, the craniocervical junction appears normal. There is mild degenerative disc disease. No central canal stenosis is seen. There are varying degrees of mild facet osteoarthritis. The uncovertebral joints appear normal. No neural foraminal stenosis is seen. No soft tissue abnormality is identified. Thoracic spine: The alignment is normal. Vertebral bodies are normal in height without evidence of acute fracture. The intervertebral discs appear normal. No central canal stenosis is seen. The facets appear normal. No neural foraminal stenosis is seen. No soft tissue abnormality is identified. Lumbar spine: There is an acute compression fracture of the superior endplate of L2 vertebral body with no significant height loss. There is a 4.4-mm peripherally sclerotic lesion in the L3 vertebral body The alignment is normal. The intervertebral discs appear normal. Moderate central canal stenosis is seen at L4-L5 due to diffuse disc bulge and ligamentum flavum hypertrophy. The facets appear normal. No neural foraminal stenosis is seen. Cysts are seen in the bilateral kidneys. Procedure Note Cleve You MD - 12/06/2022 PROCEDURE: CT FACIAL BONES WO CONTRAST, CT LUMBAR SPINE WO CONTRAST, CT THORACIC SPINE WO CONTRAST, CT CERVICAL SPINE WO CONTRAST, CT HEAD WO CONTRAST, DATE/TIME OF EXAM: 12/06/2022 8:43 PM, LOCATION [facility] INDICATION: Trauma ADDITIONAL CLINICAL INFORMATION: Ordering Provider Reason For Exam: Trauma COMPARISON: None. TECHNIQUE: CT of the head, cervical spine, and maxillofacial bones,orbits, and paranasal sinuses was performed without contrast according tostandard protocol. Reformatted axial, sagittal, and coronal images of thethoracic and lumbar spine were obtained by the technologist from a concurrently performed body CT and sent to the workstation for review. FINDINGS: Head: No acute intra- or extra-axial fluid collections are identified. The ventricles are of normal size, shape, and morphology. The basilarcisterns are patent. No mass effect or midline shift is seen. The lucas-whitematter differentiation is normal. There is vascular calcification of thecarotid siphons. No acute calvarial fracture is identified. Maxillofacial: The orbits appear normal. The paranasal sinuses are clear. The hardpalate, mandible, and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 specimen (specimen) BLOOD SPECIMEN / Unknown 07/05/2015 2:44 PM CDT 07/05/2015 3:18 PM CDT Letty Vega MD LAB - HEMATOLO GY ORDERABLES Performing Organization Address [facility] Co de Phone Number [address] [phone] * CBC W/O DIFFERENTIAL (07/05/2015 2:44 PM CDT) Only the most recent of3 resultswithin the time period is included. WBC 9.4 3.5 - 10.5 10 3/uL [facility] RBC 4.56 3.90 - 5.00 10 6/uL [facility] Hemoglobin 13.4 12.0 - 15.5 g/dL [facility] Hematocrit 38.6 35.0 - 45.0 % [facility] MCV 84.6 81.0 - 97.0 fL [facility] MCH 29.4 28.0 - 34.0 pg [facility] MCHC 34.7 32.0 - 36.0 g/dL [facility] Platelet Count 270 150 - 400 10 3/uL [facility] RDW-SD 40.5 36.0 - 50.0 fL [facility] RDW-CV 13.4 11.2 - 14.8 % [facility] MPV 10.2 9.3 - 12.8 fL [facility] Blood specimen (specimen) BLOOD SPECIMEN / Unknown 07/05/2015 2:44 PM CDT 07/05/2015 3:18 PM CDT Letty Vega MD LAB - HEMATOLO GY ORDERABLES [address] [phone] * (ABNORMAL) COMPREHENSIVE METABOLIC PANEL (07/05/2015 2:44 PM CDT) Only the most recent of3 resultswithin the time period is included. BUN 11 7 - 26 mg/dL [facility] Creatinine 0.7 0.6 - 1.2 mg/dL [facility] Sodium 141 136 - 145 mmol/L [facility] Potassium 3.4(L) 3.5 - 4.5 mmol/L [facility] Chloride 104 98 - 107 mmol/L [facility] CO2 23 22 - 29 mmol/L [facility] Glucose 108 70 - 115 mg/dL [facility] Calcium 9.6 8.4 - 10.2 mg/dL [facility] Protein Total 7.5 6.0 - 8.3 g/dL [facility] Albumin 3.9 3.4 - 5.0 g/dL [facility] Bilirubin Total 0.4 0.2 - 1.2 mg/dL [facility] Alkaline Phosphatase 79 40 - 150 Units/L [facility] ALT 15 0 - 55 Units/L [facility] AST 17 5 - 34 Units/L [facility] Anion Gap 17 8 - 18 [facility] BUN/Creatinine Ratio 16 7 - 23 [facility] Osmolality Calculated 277 270 - 300 mOsm/kg [facility] Albumin/Globulin Ratio 1.1 1.1 - 2.3 [facility] eGFR >60 >60 mL/min/1.7 3 m2 [facility] Blood specimen (specimen) BLOOD SPECIMEN / Unknown 07/05/2015 2:44 PM CDT 07/05/2015 3:19 PM CDT Letty Vega MD LAB - CHEMISTR Y ORDERABLES [address] [phone] * (ABNORMAL) HISTONE ANTIBODY (02/04/2015 3:17 PM CDT) Only the most recent of2 resultswithin the time period is included. Anti-Histone Antibody 4.5(H) 0.0 - 0.9 Units [facility] ([place]) Comment: Negative <1.0 Weak Positive 1.0 - 1.5 Moderate Positive 1.6 - 2.5 Strong Positive >2.5 Blood specimen (specimen) BLOOD SPECIMEN / Unknown 02/04/2015 3:17 PM CDT 02/04/2015 3:35 PM CDT Narrative [facility] (BEAKER) - 02/09/2015 3:20 PM CDT Performed at: [address] [id number] Hat Marker: Michael Chanel MD, Phone: [phone] Letty Vega MD LAB - CHEMISTR Y ORDERABLES [facility] (BEAKER) * US UPPER LT EXTREMITY NONVASC COMP (01/04/2015 2:29 PM SPECIAL EDUCATION ADMINISTRATOR) Anatomical Region Laterality Modality Other Impressions 01/04/2015 4:01 PM SPECIAL EDUCATION ADMINISTRATOR Impression: Multiple bilateral echogenic nodules in the subcutaneous tissues of the forearms, most likely representing lipomas. MRI is recommended for further evaluation to confirm the diagnosis. This report was approved by Steve Adams M.D. on 01/04/2015 4:00 PM . Tiago, Dr. AMANDA CALDERA M.D. have personally reviewed and interpreted this examination/study. This report was electronically signed by AMANDA CALDERA M.D. on 01/04/2015 4:01 PM . Narrative 01/04/2015 4:01 PM SPECIAL EDUCATION ADMINISTRATOR Exam: 1. Ultrasound of the left forearm 2. Ultrasound of the right forearm History: Painful bumps. History of multiple lipomas. Comparison: None available Findings: Left forearm: Multiple echogenic nodules are seen in the subcutaneous tissues of the left forearm measuring up to 2.3 x 1.0 x 1.3 cm, likely representing lipomas. No fluid collections are identified to suggest abscess. Right forearm: Multiple echogenic nodules are seen in the subcutaneous tissues of the right forearm measuring up to 0.6 x 0.5 x 0.6 cm, likely representing lipomas. No fluid collections are identified to suggest abscess. Procedure Note Provider, MD Kg - 02/02/2018 Exam: 1. Ultrasound of the left forearm 2. Ultrasound of the right forearm History: Painful bumps. History of multiple lipomas. Comparison: None available Findings: Left forearm: Multiple echogenic nodules are seen in the subcutaneous tissues of theleft forearm measuring up to 2.3 x 1.0 x 1.3 cm, likely representinglipomas. No fluid collections are identified to suggest abscess. Right forearm: Multiple echogenic nodules are seen in the subcutaneous tissues of theright forearm measuring up to 0.6 x 0.5 x 0.6 cm, likely representinglipomas. No fluid collections are identified to suggest abscess. IMPRESSION Impression: Multiple bilateral echogenic nodules in the subcutaneous tissues of theforearms, most likely representing lipomas. MRI is recommended for furtherevaluation to confirm the diagnosis. This report was approved by Steve Adams M.D. on 01/04/2015 4:00 PM. Tiago, Dr. AMANDA CALDERA M.D. have personally reviewed and interpreted thisexamination/study. This report was electronically signed by AMANDA CALDERA M.D. on 01/04/20154:01 PM . Letty Vega MD US ORDERABLES * US UPPER RT EXTREMITY NONVASC COMP (01/04/2015 2:29 PM SPECIAL EDUCATION ADMINISTRATOR) Anatomical Region Laterality Modality Other Impressions 01/04/2015 4:01 PM SPECIAL EDUCATION ADMINISTRATOR Impression: Multiple bilateral echogenic nodules in the subcutaneous tissues of the forearms, most likely representing lipomas. MRI is recommended for further evaluation to confirm the diagnosis. This report was approved by Steve Adams M.D. on 01/04/2015 4:00 PM . I, Dr. AMANDA CALDERA M.D. have personally reviewed and interpreted this examination/study. This report was electronically signed by AMANDA CALDERA M.D. on 01/04/2015 4:01 PM . Narrative 01/04/2015 4:01 PM SPECIAL EDUCATION ADMINISTRATOR Exam: 1. Ultrasound of the left forearm 2. Ultrasound of the right forearm History: Painful bumps. History of multiple lipomas. Comparison: None available Findings: Left forearm: Multiple echogenic nodules are seen in the subcutaneous tissues of the left forearm measuring up to 2.3 x 1.0 x 1.3 cm, likely representing lipomas. No fluid collections are identified to suggest abscess. Right forearm: Multiple echogenic nodules are seen in the subcutaneous tissues of the right forearm measuring up to 0.6 x 0.5 x 0.6 cm, likely representing lipomas. No fluid collections are identified to suggest abscess. Procedure Note Provider, MD Kg - 02/02/2018 Exam: 1. Ultrasound of the left forearm 2. Ultrasound of the right forearm History: Painful bumps. History of multiple lipomas. Comparison: None available Findings: Left forearm: Multiple echogenic nodules are seen in the subcutaneous tissues of theleft forearm measuring up to 2.3 x 1.0 x 1.3 cm, likely representinglipomas. No fluid collections are identified to suggest abscess. Right forearm: Multiple echogenic nodules are seen in the subcutaneous tissues of theright forearm measuring up to 0.6 x 0.5 x 0.6 cm, likely representinglipomas. No fluid collections are identified to suggest abscess. IMPRESSION Impression: Multiple bilateral echogenic nodules in the subcutaneous tissues of theforearms, most likely representing lipomas. MRI is recommended for furtherevaluation to confirm the diagnosis. This report was approved by Steve Adams M.D. on 01/04/2015 4:00 PM. I, Dr. AMANDA CALDERA M.D. have personally reviewed and interpreted thisexamination/study. This report was electronically signed by AMANDA CALDERA M.D. on 01/04/20154:01 PM . Letty Vega MD US ORDERABLES * CHROMATIN ANTIBODY (12/24/2014 12:36 PM SPECIAL EDUCATION ADMINISTRATOR) Only the most recent of2 resultswithin the time period is included. Anti-Chromatin Antibody <0.2 0.0 - 0.9 AI [facility] ([employer]) Blood specimen (specimen) BLOOD SPECIMEN / Unknown 12/24/2014 12:36 PM SPECIAL EDUCATION ADMINISTRATOR 12/24/2014 12:36 PM SPECIAL EDUCATION ADMINISTRATOR Narrative [facility] (BEAKER) - 12/25/2014 1:21 PM SPECIAL EDUCATION ADMINISTRATOR Performed at: [address] [place] [id number] Hat Marker: Juwan Alarcon PhD, Phone: [phone] Letty Vega MD LAB - SEROLOGY ORDERABLES [facility] ([facility] * BERNABE BLOOD SCREEN W/REFLEX TITER (12/24/2014 12:36 PM SPECIAL EDUCATION ADMINISTRATOR) Only the most recent of2 resultswithin the time period is included. BERNABE IFA Negative [facility] (BE[facility]ER) Comment: Negative <1:80 Borderline 1:80 Positive >1:80 Blood specimen (specimen) BLOOD SPECIMEN / Unknown 12/24/2014 12:36 PM SPECIAL EDUCATION ADMINISTRATOR 12/24/2014 12:36 PM SPECIAL EDUCATION ADMINISTRATOR Narrative [facility] (BEAKER) - 12/25/2014 3:23 PM SPECIAL EDUCATION ADMINISTRATOR Performed at: [address] [place] [address], [place] [id number] Hat Marker: Juwan Alarcon PhD, Phone: [phone] Letty Vega MD LAB - CHEMISTR Y ORDERABLES Performing Organization Address [facility]/ZIP Co de Phone Number [facility] ([facility]) * (ABNORMAL) COMPLEMENT TOTAL (12/24/2014 12:36 PM SPECIAL EDUCATION ADMINISTRATOR) Only the most recent of2 resultswithin the time period is included. Complement Total CH50 >62(H) 22 - 60 U/mL [facility] ([facility]) Comment: Effective January 18, 2015 the reference interval for Complement, Total (CH50) will be changing to: Age Male Female 1 - 30 days Not Estab. Not Estab. 31 days - 6 months 33 - 64 21 - 65 7 months - 17 years 40 - 65 40 - 65 >17 years 42 - 66 42 - 66 Blood specimen (specimen) BLOOD SPECIMEN / Unknown 12/24/2014 12:36 PM SPECIAL EDUCATION ADMINISTRATOR 12/24/2014 12:36 PM SPECIAL EDUCATION ADMINISTRATOR Narrative [facility]) - 12/25/2014 1:21 PM SPECIAL EDUCATION ADMINISTRATOR Performed at: 01 - [address] [id number] Hat Marker: Juwan Alarcon PhD, Phone: [phone] Letty Vega MD LAB - CHEMISTR Y ORDERABLES Performing Organization Address [facility] Co de Phone Number [facility]) * DNA (DS) ANTIBODY RFLEX IFA (12/24/2014 12:27 PM SPECIAL EDUCATION ADMINISTRATOR) Pathologist [facility] dsDNA Antibody 7 0 - 29 IU/mL [facility] Comment: dsDNA Antibody Numeric Result Interpretation: 0 - 29 IU/mL: Negative 30 - 75 IU/mL: Borderline >75 IU/mL: Positive Blood specimen (specimen) BLOOD SPECIMEN / Unknown 12/24/2014 12:27 PM SPECIAL EDUCATION ADMINISTRATOR 12/24/2014 12:27 PM SPECIAL EDUCATION ADMINISTRATOR Letty Vega MD LAB - SEROLOGY ORDERABLES Performing Organization Address City/[facility] Co de Phone Number [address] [phone] * URIC ACID BLOOD (12/24/2014 12:27 PM SPECIAL EDUCATION ADMINISTRATOR) Only the most recent of2 resultswithin the time period is included. Pathologist [facility] Uric Acid 4.8 2.6 - 7.2 mg/dL [facility] Blood specimen (specimen) BLOOD SPECIMEN / Unknown 12/24/2014 12:27 PM SPECIAL EDUCATION ADMINISTRATOR 12/24/2014 12:27 PM SPECIAL EDUCATION ADMINISTRATOR Letty Vega MD LAB - CHEMISTR Y ORDERABLES Performing Organization Address [facility] de Phone Number [address] [phone] * THOMAS (SM) ANTIBODY SELAM (12/24/2014 12:27 PM SPECIAL EDUCATION ADMINISTRATOR) Only the most recent of2 resultswithin the time period is included. Pathologist [facility] Thomas Antibody 7.0 0.0 - 19.9 Units [facility] Comment: SELAM Antibody Numeric Result Interpretation: <20.0 Units: Negative 20.0 - 39.0 Units: Weakly Positive >39.0 Units: Positive Blood specimen (specimen) BLOOD SPECIMEN / Unknown 12/24/2014 12:27 PM SPECIAL EDUCATION ADMINISTRATOR 12/24/2014 12:27 PM SPECIAL EDUCATION ADMINISTRATOR Letty Vega MD LAB - CHEMISTR Y ORDERABLES Performing Organization Address [facility] Co de Phone Number [address] [phone] * JEWELSMITH ANTIBODY (12/24/2014 12:27 PM SPECIAL EDUCATION ADMINISTRATOR) Only the most recent of2 resultswithin the time period is included. SM/JEWELSMITH Antibody 8.0 0.0 - 19.9 Units [facility] Comment: SELAM Antibody Numeric Result Interpretation: <20.0 Units: Negative 20.0 - 39.0 Units: Weakly Positive >39.0 Units: Positive Blood specimen (specimen) BLOOD SPECIMEN / Unknown 12/24/2014 12:27 PM SPECIAL EDUCATION ADMINISTRATOR 12/24/2014 12:27 PM SPECIAL EDUCATION ADMINISTRATOR Letty Vega MD LAB - CHEMISTR Y ORDERABLES Performing Organization Address City/[facility]/ZIP Co de Phone Number [address] [phone] * RHEUMATOID FACTOR BLOOD QUANTITATIVE (12/24/2014 12:27 PM SPECIAL EDUCATION ADMINISTRATOR) Only the most recent of2 resultswithin the time period is included. Rheumatoid Factor <15 <30 IU/mL [facility] Blood specimen (specimen) BLOOD SPECIMEN / Unknown 12/24/2014 12:27 PM SPECIAL EDUCATION ADMINISTRATOR 12/24/2014 12:27 PM SPECIAL EDUCATION ADMINISTRATOR Letty Vega MD LAB - CHEMISTR Y ORDERABLES Performing Organization Address [facility] Co de Phone Number [address] [phone] * SS-B (SJOGRENS'S) ANTIBODY (12/24/2014 12:27 PM SPECIAL EDUCATION ADMINISTRATOR) SS-B LA Antibody 2.6 0.0 - 19.9 Units [facility] Comment: SELAM Antibody Numeric Result Interpretation: <20.0 Units: Negative 20.0 - 39.0 Units: Weakly Positive >39.0 Units: Positive Blood specimen (specimen) BLOOD SPECIMEN / Unknown 12/24/2014 12:27 PM SPECIAL EDUCATION ADMINISTRATOR 12/24/2014 12:27 PM SPECIAL EDUCATION ADMINISTRATOR Letty Vega MD LAB - CHEMISTR Y ORDERABLES Performing Organization Address [facility] Co de Phone Number [address] [phone] * SS-A (SJOGREN'S) ANTIBODY (12/24/2014 12:27 PM SPECIAL EDUCATION ADMINISTRATOR) SS-A (Ro) Antibody 12.2 0.0 - 19.9 Units [facility] Comment: SELAM Antibody Numeric Result Interpretation: <20.0 Units: Negative 20.0 - 39.0 Units: Weakly Positive >39.0 Units: Positive Blood specimen (specimen) BLOOD SPECIMEN / Unknown 12/24/2014 12:27 PM SPECIAL EDUCATION ADMINISTRATOR 12/24/2014 12:27 PM SPECIAL EDUCATION ADMINISTRATOR Letty Vega MD LAB - CHEMISTR Y ORDERABLES Performing Organization Address [facility] Co de Phone Number [address] [phone] * SCLERODERMA 70 (SCL) ANTIBODY (12/24/2014 12:27 PM SPECIAL EDUCATION ADMINISTRATOR) Only the most recent of2 resultswithin the time period is included. SCL-70 Antibody 2.3 0.0 - 19.9 Units [facility] Comment: SELAM Antibody Numeric Result Interpretation: <20.0 Units: Negative 20.0 - 39.0 Units: Weakly Positive >39.0 Units: Positive Blood specimen (specimen) BLOOD SPECIMEN / Unknown 12/24/2014 12:27 PM SPECIAL EDUCATION ADMINISTRATOR 12/24/2014 12:27 PM SPECIAL EDUCATION ADMINISTRATOR Letty Vega MD LAB - CHEMISTR Y ORDERABLES Performing Organization Address [facility] de Phone Number [address] [phone] * CYCLIC CITRUL PEPTIDE AB IGG (CCP) (12/24/2014 12:27 PM SPECIAL EDUCATION ADMINISTRATOR) Only the most recent of2 resultswithin the time period is included. CCP Antibody IgG <0.5 <5.0 U/mL [facility] Blood specimen (specimen) BLOOD SPECIMEN / Unknown 12/24/2014 12:27 PM SPECIAL EDUCATION ADMINISTRATOR 12/24/2014 12:27 PM SPECIAL EDUCATION ADMINISTRATOR Letty Vega MD LAB - CHEMISTR Y ORDERABLES Performing Organization Address [facility] Co de Phone Number [address] [phone] * COMPLEMENT C4 (12/24/2014 12:27 PM SPECIAL EDUCATION ADMINISTRATOR) Only the most recent of2 resultswithin the time period is included. Complement C4 33 15 - 57 mg/dL [facility] Blood specimen (specimen) BLOOD SPECIMEN / Unknown 12/24/2014 12:27 PM SPECIAL EDUCATION ADMINISTRATOR 12/24/2014 12:27 PM SPECIAL EDUCATION ADMINISTRATOR Letty Vega MD LAB - SEROLOGY ORDERABLES [address] [phone] * HEPATITIS B SURFACE ANTIGEN W RFLX CONFIRMATION (12/24/2014 12:27 PM SPECIAL EDUCATION ADMINISTRATOR) Only the most recent of2 resultswithin the time period is included. Hepatitis B Virus Surface Antigen Non-reacti ve Non-reacti ve [facility] Blood specimen (specimen) BLOOD SPECIMEN / Unknown 12/24/2014 12:27 PM SPECIAL EDUCATION ADMINISTRATOR 12/24/2014 12:27 PM SPECIAL EDUCATION ADMINISTRATOR Letty Vega MD LAB - CHEMISTR Y ORDERABLES Performing Organization Address [facility] Co de Phone Number [address] [phone] * CK BLOOD (12/24/2014 12:27 PM SPECIAL EDUCATION ADMINISTRATOR) Only the most recent of2 resultswithin the time period is included. CK Total 59 30 - 200 Units/L [facility] Blood specimen (specimen) BLOOD SPECIMEN / Unknown 12/24/2014 12:27 PM SPECIAL EDUCATION ADMINISTRATOR 12/24/2014 12:27 PM SPECIAL EDUCATION ADMINISTRATOR Letty Vega MD LAB - CHEMISTR Y ORDERABLES Performing Organization Address City/[facility]/[place] [address], [facility] [phone] * TSH (12/24/2014 12:27 PM SPECIAL EDUCATION ADMINISTRATOR) Only the most recent of2 resultswithin the time period is included. TSH 0.627 0.350 - 4.940 uIU/mL [facility] Blood specimen (specimen) BLOOD SPECIMEN / Unknown 12/24/2014 12:27 PM SPECIAL EDUCATION ADMINISTRATOR 12/24/2014 12:27 PM SPECIAL EDUCATION ADMINISTRATOR Letty Vega MD LAB - CHEMISTR Y ORDERABLES Performing Organization Address [facility] Co de Phone Number [address] [phone] * T4 FREE (12/24/2014 12:27 PM SPECIAL EDUCATION ADMINISTRATOR) Only the most recent of2 resultswithin the time period is included. Pathologist [facility] T4 Free 1.0 0.7 - 1.5 ng/dL [facility] Blood specimen (specimen) BLOOD SPECIMEN / Unknown 12/24/2014 12:27 PM SPECIAL EDUCATION ADMINISTRATOR 12/24/2014 12:27 PM SPECIAL EDUCATION ADMINISTRATOR Letty Vega MD LAB - CHEMISTR Y ORDERABLES Performing Organization Address [facility] de Phone Number [address] [phone] * HEPATITIS C ANTIBODY (12/24/2014 12:27 PM SPECIAL EDUCATION ADMINISTRATOR) Only the most recent of2 resultswithin the time period is included. [facility] Hepatitis C Antibody Non-react [facility] Comment: Hepatitis C Antibody screen indicates no serologic evidence of past or current infection with Hepatitis C Virus. Patients with unexplained liver disease who are immunocompromised or suspected of having acute Hepatitis C infection may benefit from Nucleic Acid Test (JEANINE) for Hepatitis C Viral RNA to confirm Hepatitis C status. Blood specimen (specimen) BLOOD SPECIMEN / Unknown 12/24/2014 12:27 PM SPECIAL EDUCATION ADMINISTRATOR 12/24/2014 12:27 PM SPECIAL EDUCATION ADMINISTRATOR Letty Vega MD LAB - CHEMISTR Y ORDERABLES Performing Organization Address [facility]/ZIP Co de Phone Number [id number] [place] [address], [facility] [phone] * COMPLEMENT C3 (12/24/2014 12:27 PM SPECIAL EDUCATION ADMINISTRATOR) Only the most recent of2 resultswithin the time period is included. Complement C3 176 82 - 193 mg/dL [facility] Blood specimen (specimen) BLOOD SPECIMEN / Unknown 12/24/2014 12:27 PM SPECIAL EDUCATION ADMINISTRATOR 12/24/2014 12:27 PM SPECIAL EDUCATION ADMINISTRATOR Letty Vega MD LAB - [place] [address], [facility] [phone] * XR FOOT RIGHT 2VW (12/24/2014 12:08 PM SPECIAL EDUCATION ADMINISTRATOR) Only the most recent of2 resultswithin the time period is included. Anatomical Region Laterality Modality Ankle / Foot Other Impressions 12/24/2014 12:32 PM SPECIAL EDUCATION ADMINISTRATOR Impression: 1. Minimal osteophyte formation in both hands, likely representing early osteoarthritis. 2. Both wrists are normal. 3. Both elbows are normal. 4. Calcaneal spurs are present in both feet, but there is otherwise no radiographic evidence of arthritis. This report was electronically signed by SIVAKUMAR BUCHANAN MD on 12/24/2014 12:32 PM . Narrative 12/24/2014 12:32 PM SPECIAL EDUCATION ADMINISTRATOR Exam: 1. XR ELBOW LEFT 2 VW 2. XR HAND LEFT 2 VW 3. XR HAND RIGHT 2 VW 4. XR FOOT LEFT 2 VW 5. XR FOOT RIGHT 2 VW 6. XR WRIST RIGHT 2 VW 7. XR WRIST LEFT 2 VW 8. 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 Findings: Right hand: There is no fracture or dislocation. The joint spaces are normal. There is minimal osteophyte formation at a few joints including the second metacarpal phalangeal and distal interphalangeal joints likely representing early osteoarthritis. No erosions are present. Bone mineralization is normal. The soft tissues are normal. Left hand: There is no fracture or dislocation. The joint spaces are normal. There are tiny osteophytes at the third metacarpophalangeal joint. No erosions are present. Bone mineralization is normal. The soft tissues are normal. Right wrist: There is no fracture or dislocation. The joint spaces are normal. No erosions are present. Bone mineralization is normal. The soft tissues are normal. Left wrist: There is no fracture or dislocation. The joint spaces are normal. No erosions are present. Bone mineralization is normal. The soft tissues are normal. Right elbow: There is no fracture or dislocation. The joint spaces are normal. No erosions are present. Bone mineralization is normal. The soft tissues are normal. A subcentimeter sclerotic focus within the capitellum is compatible with a bone island. Left elbow: There is no fracture or dislocation. The joint spaces are normal. No erosions are present. Bone mineralization is normal. The soft tissues are normal. Right foot: There is no fracture or dislocation. The joint spaces are normal. No erosions are present. Bone mineralization is normal. The soft tissues are normal. There are moderate plantar and small posterior calcaneal spurs, slightly increased in size since the prior examination. Left foot: There is no fracture or dislocation. The joint spaces are normal. No erosions are present. Bone mineralization is normal. The soft tissues are normal. There is a moderate plantar calcaneal spur, unchanged. Procedure Note Sivakumar Buchanan MD - 02/02/2018 Exam: 1. XR ELBOW LEFT 2 VW 2. XR HAND LEFT 2 VW 3. XR HAND RIGHT 2 VW 4. XR FOOT LEFT 2 VW 5. XR FOOT RIGHT 2 VW 6. XR WRIST RIGHT 2 VW 7. XR WRIST LEFT 2 VW 8. 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 Findings: Right hand: There is no fracture or dislocation. The joint spaces are normal. There isminimal osteophyte formation at a few joints including the secondmetacarpal phalangeal and distal interphalangeal joints likelyrepresenting early osteoarthritis. No erosions are present. Bone mineralization is normal. The soft tissues are normal. Left hand: There is no fracture or dislocation. The joint spaces are normal. Thereare tiny osteophytes at the third metacarpophalangeal joint. No erosionsare present. Bone mineralization is normal. The soft tissues are normal. Right wrist: There is no fracture or dislocation. The joint spaces are normal. Noerosions are present. Bone mineralization is normal. The soft tissues arenormal. Left wrist: There is no fracture or dislocation. The joint spaces are normal. Noerosions are present. Bone mineralization is normal. The soft tissues arenormal. Right elbow: There is no fracture or dislocation. The joint spaces are normal. Noerosions are present. Bone mineralization is normal. The soft tissues arenormal. A subcentimeter sclerotic focus within the capitellum iscompatible with a bone island. Left elbow: There is no fracture or dislocation. The joint spaces are normal. Noerosions are present. Bone mineralization is normal. The soft tissues arenormal. Right foot: There is no fracture or dislocation. The joint spaces are normal. Noerosions are present. Bone mineralization is normal. The soft tissues arenormal. There are moderate plantar and small posterior calcaneal spurs,slightly increased in size since the prior examination. Left foot: There is no fracture or dislocation. The joint spaces are normal. Noerosions are present. Bone mineralization is normal. The soft tissues arenormal. There is a moderate plantar calcaneal spur, unchanged. IMPRESSION Impression: 1. Minimal osteophyte formation in both hands, likely representing earlyosteoarthritis. 2. Both wrists are normal. 3. Both elbows are normal. 4. Calcaneal spurs are present in both feet, but there is otherwise noradiographic evidence of arthritis. This report was electronically signed by SIVAKUMAR BUCHANAN MD on 12/24/201412:32 PM . Letty Vega MD DIAGNOSTIC [facility] ORDERABLES * XR FOOT LEFT 2VW (12/24/2014 12:08 PM SPECIAL EDUCATION ADMINISTRATOR) Only the most recent of2 resultswithin the time period is included. Anatomical Region Laterality Modality Ankle / Foot Other Impressions 12/24/2014 12:32 PM SPECIAL EDUCATION ADMINISTRATOR Impression: 1. Minimal osteophyte formation in both hands, likely representing early osteoarthritis. 2. Both wrists are normal. 3. Both elbows are normal. 4. Calcaneal spurs are present in both feet, but there is otherwise no radiographic evidence of arthritis. This report was electronically signed by SIVAKUMAR BUCHANAN MD on 12/24/2014 12:32 PM . Narrative 12/24/2014 12:32 PM SPECIAL EDUCATION ADMINISTRATOR Exam: 1. XR ELBOW LEFT 2 VW 2. XR HAND LEFT 2 VW 3. XR HAND RIGHT 2 VW 4. XR FOOT LEFT 2 VW 5. XR FOOT RIGHT 2 VW 6. XR WRIST RIGHT 2 VW 7. XR WRIST LEFT 2 VW 8. 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 Findings: Right hand: There is no fracture or dislocation. The joint spaces are normal. There is minimal osteophyte formation at a few joints including the second metacarpal phalangeal and distal interphalangeal joints likely representing early osteoarthritis. No erosions are present. Bone mineralization is normal. The soft tissues are normal. Left hand: There is no fracture or dislocation. The joint spaces are normal. There are tiny osteophytes at the third metacarpophalangeal joint. No erosions are present. Bone mineralization is normal. The soft tissues are normal. Right wrist: There is no fracture or dislocation. The joint spaces are normal. No erosions are present. Bone mineralization is normal. The soft tissues are normal. Left wrist: There is no fracture or dislocation. The joint spaces are normal. No erosions are present. Bone mineralization is normal. The soft tissues are normal. Right elbow: There is no fracture or dislocation. The joint spaces are normal. No erosions are present. Bone mineralization is normal. The soft tissues are normal. A subcentimeter sclerotic focus within the capitellum is compatible with a bone island. Left elbow: There is no fracture or dislocation. The joint spaces are normal. No erosions are present. Bone mineralization is normal. The soft tissues are normal. Right foot: There is no fracture or dislocation. The joint spaces are normal. No erosions are present. Bone mineralization is normal. The soft tissues are normal. There are moderate plantar and small posterior calcaneal spurs, slightly increased in size since the prior examination. Left foot: There is no fracture or dislocation. The joint spaces are normal. No erosions are present. Bone mineralization is normal. The soft tissues are normal. There is a moderate plantar calcaneal spur, unchanged. Procedure Note Sivakumar Buchanan MD - 02/02/2018 Exam: 1. XR ELBOW LEFT 2 VW 2. XR HAND LEFT 2 VW 3. XR HAND RIGHT 2 VW 4. XR FOOT LEFT 2 VW 5. XR FOOT RIGHT 2 VW 6. XR WRIST RIGHT 2 VW 7. XR WRIST LEFT 2 VW 8. 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 Findings: Right hand: There is no fracture or dislocation. The joint spaces are normal. There isminimal osteophyte formation at a few joints including the secondmetacarpal phalangeal and distal interphalangeal joints likelyrepresenting early osteoarthritis. No erosions are present. Bone mineralization is normal. The soft tissues are normal. Left hand: There is no fracture or dislocation. The joint spaces are normal. Thereare tiny osteophytes at the third metacarpophalangeal joint. No erosionsare present. Bone mineralization is normal. The soft tissues are normal. Right wrist: There is no fracture or dislocation. The joint spaces are normal. Noerosions are present. Bone mineralization is normal. The soft tissues arenormal. Left wrist: There is no fracture or dislocation. The joint spaces are normal. Noerosions are present. Bone mineralization is normal. The soft tissues arenormal. Right elbow: There is no fracture or dislocation. The joint spaces are normal. Noerosions are present. Bone mineralization is normal. The soft tissues arenormal. A subcentimeter sclerotic focus within the capitellum iscompatible with a bone island. Left elbow: There is no fracture or dislocation. The joint spaces are normal. Noerosions are present. Bone mineralization is normal. The soft tissues arenormal. Right foot: There is no fracture or dislocation. The joint spaces are normal. Noerosions are present. Bone mineralization is normal. The soft tissues arenormal. There are moderate plantar and small posterior calcaneal spurs,slightly increased in size since the prior examination. Left foot: There is no fracture or dislocation. The joint spaces are normal. Noerosions are present. Bone mineralization is normal. The soft tissues arenormal. There is a moderate plantar calcaneal spur, unchanged. IMPRESSION Impression: 1. Minimal osteophyte formation in both hands, likely representing earlyosteoarthritis. 2. Both wrists are normal. 3. Both elbows are normal. 4. Calcaneal spurs are present in both feet, but there is otherwise noradiographic evidence of arthritis. This report was electronically signed by SIVAKUMAR BUCHANAN MD on 12/24/201412:32 PM . Letty Vega MD DIAGNOSTIC [facility] ORDERABLES * XR HAND RIGHT 2VW (12/24/2014 12:08 PM SPECIAL EDUCATION ADMINISTRATOR) Only the most recent of2 resultswithin the time period is included. Anatomical Region Laterality Modality Wrist / Hand Other Impressions 12/24/2014 12:32 PM SPECIAL EDUCATION ADMINISTRATOR Impression: 1. Minimal osteophyte formation in both hands, likely representing early osteoarthritis. 2. Both wrists are normal. 3. Both elbows are normal. 4. Calcaneal spurs are present in both feet, but there is otherwise no radiographic evidence of arthritis. This report was electronically signed by SIVAKUMAR BUCHANAN MD on 12/24/2014 12:32 PM . Narrative 12/24/2014 12:32 PM SPECIAL EDUCATION ADMINISTRATOR Exam: 1. XR ELBOW LEFT 2 VW 2. XR HAND LEFT 2 VW 3. XR HAND RIGHT 2 VW 4. XR FOOT LEFT 2 VW 5. XR FOOT RIGHT 2 VW 6. XR WRIST RIGHT 2 VW 7. XR WRIST LEFT 2 VW 8. 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 Findings: Right hand: There is no fracture or dislocation. The joint spaces are normal. There is minimal osteophyte formation at a few joints including the second metacarpal phalangeal and distal interphalangeal joints likely representing early osteoarthritis. No erosions are present. Bone mineralization is normal. The soft tissues are normal. Left hand: There is no fracture or dislocation. The joint spaces are normal. There are tiny osteophytes at the third metacarpophalangeal joint. No erosions are present. Bone mineralization is normal. The soft tissues are normal. Right wrist: There is no fracture or dislocation. The joint spaces are normal. No erosions are present. Bone mineralization is normal. The soft tissues are normal. Left wrist: There is no fracture or dislocation. The joint spaces are normal. No erosions are present. Bone mineralization is normal. The soft tissues are normal. Right elbow: There is no fracture or dislocation. The joint spaces are normal. No erosions are present. Bone mineralization is normal. The soft tissues are normal. A subcentimeter sclerotic focus within the capitellum is compatible with a bone island. Left elbow: There is no fracture or dislocation. The joint spaces are normal. No erosions are present. Bone mineralization is normal. The soft tissues are normal. Right foot: There is no fracture or dislocation. The joint spaces are normal. No erosions are present. Bone mineralization is normal. The soft tissues are normal. There are moderate plantar and small posterior calcaneal spurs, slightly increased in size since the prior examination. Left foot: There is no fracture or dislocation. The joint spaces are normal. No erosions are present. Bone mineralization is normal. The soft tissues are normal. There is a moderate plantar calcaneal spur, unchanged. Procedure Note Sivakumar Buchanan MD - 02/02/2018 Exam: 1. XR ELBOW LEFT 2 VW 2. XR HAND LEFT 2 VW 3. XR HAND RIGHT 2 VW 4. XR FOOT LEFT 2 VW 5. XR FOOT RIGHT 2 VW 6. XR WRIST RIGHT 2 VW 7. XR WRIST LEFT 2 VW 8. 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 Findings: Right hand: There is no fracture or dislocation. The joint spaces are normal. There isminimal osteophyte formation at a few joints including the secondmetacarpal phalangeal and distal interphalangeal joints likelyrepresenting early osteoarthritis. No erosions are present. Bone mineralization is normal. The soft tissues are normal. Left hand: There is no fracture or dislocation. The joint spaces are normal. Thereare tiny osteophytes at the third metacarpophalangeal joint. No erosionsare present. Bone mineralization is normal. The soft tissues are normal. Right wrist: There is no fracture or dislocation. The joint spaces are normal. Noerosions are present. Bone mineralization is normal. The soft tissues arenormal. Left wrist: There is no fracture or dislocation. The joint spaces are normal. Noerosions are present. Bone mineralization is normal. The soft tissues arenormal. Right elbow: There is no fracture or dislocation. The joint spaces are normal. Noerosions are present. Bone mineralization is normal. The soft tissues arenormal. A subcentimeter sclerotic focus within the capitellum iscompatible with a bone island. Left elbow: There is no fracture or dislocation. The joint spaces are normal. Noerosions are present. Bone mineralization is normal. The soft tissues arenormal. Right foot: There is no fracture or dislocation. The joint spaces are normal. Noerosions are present. Bone mineralization is normal. The soft tissues arenormal. There are moderate plantar and small posterior calcaneal spurs,slightly increased in size since the prior examination. Left foot: There is no fracture or dislocation. The joint spaces are normal. Noerosions are present. Bone mineralization is normal. The soft tissues arenormal. There is a moderate plantar calcaneal spur, unchanged. IMPRESSION Impression: 1. Minimal osteophyte formation in both hands, likely representing earlyosteoarthritis. 2. Both wrists are normal. 3. Both elbows are normal. 4. Calcaneal spurs are present in both feet, but there is otherwise noradiographic evidence of arthritis. This report was electronically signed by SIVAKUMAR BUCHANAN MD on 12/24/201412:32 PM . Letty Vega MD DIAGNOSTIC [facility] ORDERABLES * XR HAND LEFT 2VW (12/24/2014 12:08 PM SPECIAL EDUCATION ADMINISTRATOR) Only the most recent of2 resultswithin the time period is included. Anatomical Region Laterality Modality Wrist / Hand Other Impressions 12/24/2014 12:32 PM SPECIAL EDUCATION ADMINISTRATOR Impression: 1. Minimal osteophyte formation in both hands, likely representing early osteoarthritis. 2. Both wrists are normal. 3. Both elbows are normal. 4. Calcaneal spurs are present in both feet, but there is otherwise no radiographic evidence of arthritis. This report was electronically signed by SIVAKUMAR BUCHANAN MD on 12/24/2014 12:32 PM . Narrative 12/24/2014 12:32 PM SPECIAL EDUCATION ADMINISTRATOR Exam: 1. XR ELBOW LEFT 2 VW 2. XR HAND LEFT 2 VW 3. XR HAND RIGHT 2 VW 4. XR FOOT LEFT 2 VW 5. XR FOOT RIGHT 2 VW 6. XR WRIST RIGHT 2 VW 7. XR WRIST LEFT 2 VW 8. 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 Findings: Right hand: There is no fracture or dislocation. The joint spaces are normal. There is minimal osteophyte formation at a few joints including the second metacarpal phalangeal and distal interphalangeal joints likely representing early osteoarthritis. No erosions are present. Bone mineralization is normal. The soft tissues are normal. Left hand: There is no fracture or dislocation. The joint spaces are normal. There are tiny osteophytes at the third metacarpophalangeal joint. No erosions are present. Bone mineralization is normal. The soft tissues are normal. Right wrist: There is no fracture or dislocation. The joint spaces are normal. No erosions are present. Bone mineralization is normal. The soft tissues are normal. Left wrist: There is no fracture or dislocation. The joint spaces are normal. No erosions are present. Bone mineralization is normal. The soft tissues are normal. Right elbow: There is no fracture or dislocation. The joint spaces are normal. No erosions are present. Bone mineralization is normal. The soft tissues are normal. A subcentimeter sclerotic focus within the capitellum is compatible with a bone island. Left elbow: There is no fracture or dislocation. The joint spaces are normal. No erosions are present. Bone mineralization is normal. The soft tissues are normal. Right foot: There is no fracture or dislocation. The joint spaces are normal. No erosions are present. Bone mineralization is normal. The soft tissues are normal. There are moderate plantar and small posterior calcaneal spurs, slightly increased in size since the prior examination. Left foot: There is no fracture or dislocation. The joint spaces are normal. No erosions are present. Bone mineralization is normal. The soft tissues are normal. There is a moderate plantar calcaneal spur, unchanged. Procedure Note Sivakumar Buchanan MD - 02/02/2018 Exam: 1. XR ELBOW LEFT 2 VW 2. XR HAND LEFT 2 VW 3. XR HAND RIGHT 2 VW 4. XR FOOT LEFT 2 VW 5. XR FOOT RIGHT 2 VW 6. XR WRIST RIGHT 2 VW 7. XR WRIST LEFT 2 VW 8. 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 Findings: Right hand: There is no fracture or dislocation. The joint spaces are normal. There isminimal osteophyte formation at a few joints including the secondmetacarpal phalangeal and distal interphalangeal joints likelyrepresenting early osteoarthritis. No erosions are present. Bone mineralization is normal. The soft tissues are normal. Left hand: There is no fracture or dislocation. The joint spaces are normal. Thereare tiny osteophytes at the third metacarpophalangeal joint. No erosionsare present. Bone mineralization is normal. The soft tissues are normal. Right wrist: There is no fracture or dislocation. The joint spaces are normal. Noerosions are present. Bone mineralization is normal. The soft tissues arenormal. Left wrist: There is no fracture or dislocation. The joint spaces are normal. Noerosions are present. Bone mineralization is normal. The soft tissues arenormal. Right elbow: There is no fracture or dislocation. The joint spaces are normal. Noerosions are present. Bone mineralization is normal. The soft tissues arenormal. A subcentimeter sclerotic focus within the capitellum iscompatible with a bone island. Left elbow: There is no fracture or dislocation. The joint spaces are normal. Noerosions are present. Bone mineralization is normal. The soft tissues arenormal. Right foot: There is no fracture or dislocation. The joint spaces are normal. Noerosions are present. Bone mineralization is normal. The soft tissues arenormal. There are moderate plantar and small posterior calcaneal spurs,slightly increased in size since the prior examination. Left foot: There is no fracture or dislocation. The joint spaces are normal. Noerosions are present. Bone mineralization is normal. The soft tissues arenormal. There is a moderate plantar calcaneal spur, unchanged. IMPRESSION Impression: 1. Minimal osteophyte formation in both hands, likely representing earlyosteoarthritis. 2. Both wrists are normal. 3. Both elbows are normal. 4. Calcaneal spurs are present in both feet, but there is otherwise noradiographic evidence of arthritis. This report was electronically signed by SIVAKUMAR BUCHANAN MD on 12/24/201412:32 PM . Letty Vega MD DIAGNOSTIC [facility] ORDERABLES * XR WRIST RIGHT 2VW (12/24/2014 12:08 PM SPECIAL EDUCATION ADMINISTRATOR) Only the most recent of2 resultswithin the time period is included. Anatomical Region Laterality Modality Wrist / Hand Other Impressions 12/24/2014 12:32 PM SPECIAL EDUCATION ADMINISTRATOR Impression: 1. Minimal osteophyte formation in both hands, likely representing early osteoarthritis. 2. Both wrists are normal. 3. Both elbows are normal. 4. Calcaneal spurs are present in both feet, but there is otherwise no radiographic evidence of arthritis. This report was electronically signed by SIVAKUMAR BUCHANAN MD on 12/24/2014 12:32 PM . Narrative 12/24/2014 12:32 PM SPECIAL EDUCATION ADMINISTRATOR Exam: 1. XR ELBOW LEFT 2 VW 2. XR HAND LEFT 2 VW 3. XR HAND RIGHT 2 VW 4. XR FOOT LEFT 2 VW 5. XR FOOT RIGHT 2 VW 6. XR WRIST RIGHT 2 VW 7. XR WRIST LEFT 2 VW 8. 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 Findings: Right hand: There is no fracture or dislocation. The joint spaces are normal. There is minimal osteophyte formation at a few joints including the second metacarpal phalangeal and distal interphalangeal joints likely representing early osteoarthritis. No erosions are present. Bone mineralization is normal. The soft tissues are normal. Left hand: There is no fracture or dislocation. The joint spaces are normal. There are tiny osteophytes at the third metacarpophalangeal joint. No erosions are present. Bone mineralization is normal. The soft tissues are normal. Right wrist: There is no fracture or dislocation. The joint spaces are normal. No erosions are present. Bone mineralization is normal. The soft tissues are normal. Left wrist: There is no fracture or dislocation. The joint spaces are normal. No erosions are present. Bone mineralization is normal. The soft tissues are normal. Right elbow: There is no fracture or dislocation. The joint spaces are normal. No erosions are present. Bone mineralization is normal. The soft tissues are normal. A subcentimeter sclerotic focus within the capitellum is compatible with a bone island. Left elbow: There is no fracture or dislocation. The joint spaces are normal. No erosions are present. Bone mineralization is normal. The soft tissues are normal. Right foot: There is no fracture or dislocation. The joint spaces are normal. No erosions are present. Bone mineralization is normal. The soft tissues are normal. There are moderate plantar and small posterior calcaneal spurs, slightly increased in size since the prior examination. Left foot: There is no fracture or dislocation. The joint spaces are normal. No erosions are present. Bone mineralization is normal. The soft tissues are normal. There is a moderate plantar calcaneal spur, unchanged. Procedure Note Sivakumar Buchanan MD - 02/02/2018 Exam: 1. XR ELBOW LEFT 2 VW 2. XR HAND LEFT 2 VW 3. XR HAND RIGHT 2 VW 4. XR FOOT LEFT 2 VW 5. XR FOOT RIGHT 2 VW 6. XR WRIST RIGHT 2 VW 7. XR WRIST LEFT 2 VW 8. 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 Findings: Right hand: There is no fracture or dislocation. The joint spaces are normal. There isminimal osteophyte formation at a few joints including the secondmetacarpal phalangeal and distal interphalangeal joints likelyrepresenting early osteoarthritis. No erosions are present. Bone mineralization is normal. The soft tissues are normal. Left hand: There is no fracture or dislocation. The joint spaces are normal. Thereare tiny osteophytes at the third metacarpophalangeal joint. No erosionsare present. Bone mineralization is normal. The soft tissues are normal. Right wrist: There is no fracture or dislocation. The joint spaces are normal. Noerosions are present. Bone mineralization is normal. The soft tissues arenormal. Left wrist: There is no fracture or dislocation. The joint spaces are normal. Noerosions are present. Bone mineralization is normal. The soft tissues arenormal. Right elbow: There is no fracture or dislocation. The joint spaces are normal. Noerosions are present. Bone mineralization is normal. The soft tissues arenormal. A subcentimeter sclerotic focus within the capitellum iscompatible with a bone island. Left elbow: There is no fracture or dislocation. The joint spaces are normal. Noerosions are present. Bone mineralization is normal. The soft tissues arenormal. Right foot: There is no fracture or dislocation. The joint spaces are normal. Noerosions are present. Bone mineralization is normal. The soft tissues arenormal. There are moderate plantar and small posterior calcaneal spurs,slightly increased in size since the prior examination. Left foot: There is no fracture or dislocation. The joint spaces are normal. Noerosions are present. Bone mineralization is normal. The soft tissues arenormal. There is a moderate plantar calcaneal spur, unchanged. IMPRESSION Impression: 1. Minimal osteophyte formation in both hands, likely representing earlyosteoarthritis. 2. Both wrists are normal. 3. Both elbows are normal. 4. Calcaneal spurs are present in both feet, but there is otherwise noradiographic evidence of arthritis. This report was electronically signed by SIVAKUMAR BUCHANAN MD on 12/24/201412:32 PM . Letty Vega MD DIAGNOSTIC NEREIDA GING ORDERABLES * XR WRIST LEFT 2VW (12/24/2014 12:08 PM SPECIAL EDUCATION ADMINISTRATOR) Only the most recent of2 resultswithin the time period is included. Anatomical Region Laterality Modality Wrist / Hand Other Impressions 12/24/2014 12:32 PM SPECIAL EDUCATION ADMINISTRATOR Impression: 1. Minimal osteophyte formation in both hands, likely representing early osteoarthritis. 2. Both wrists are normal. 3. Both elbows are normal. 4. Calcaneal spurs are present in both feet, but there is otherwise no radiographic evidence of arthritis. This report was electronically signed by SIVAKUMAR BUCHANAN MD on 12/24/2014 12:32 PM . Narrative 12/24/2014 12:32 PM SPECIAL EDUCATION ADMINISTRATOR Exam: 1. XR ELBOW LEFT 2 VW 2. XR HAND LEFT 2 VW 3. XR HAND RIGHT 2 VW 4. XR FOOT LEFT 2 VW 5. XR FOOT RIGHT 2 VW 6. XR WRIST RIGHT 2 VW 7. XR WRIST LEFT 2 VW 8. 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 Findings: Right hand: There is no fracture or dislocation. The joint spaces are normal. There is minimal osteophyte formation at a few joints including the second metacarpal phalangeal and distal interphalangeal joints likely representing early osteoarthritis. No erosions are present. Bone mineralization is normal. The soft tissues are normal. Left hand: There is no fracture or dislocation. The joint spaces are normal. There are tiny osteophytes at the third metacarpophalangeal joint. No erosions are present. Bone mineralization is normal. The soft tissues are normal. Right wrist: There is no fracture or dislocation. The joint spaces are normal. No erosions are present. Bone mineralization is normal. The soft tissues are normal. Left wrist: There is no fracture or dislocation. The joint spaces are normal. No erosions are present. Bone mineralization is normal. The soft tissues are normal. Right elbow: There is no fracture or dislocation. The joint spaces are normal. No erosions are present. Bone mineralization is normal. The soft tissues are normal. A subcentimeter sclerotic focus within the capitellum is compatible with a bone island. Left elbow: There is no fracture or dislocation. The joint spaces are normal. No erosions are present. Bone mineralization is normal. The soft tissues are normal. Right foot: There is no fracture or dislocation. The joint spaces are normal. No erosions are present. Bone mineralization is normal. The soft tissues are normal. There are moderate plantar and small posterior calcaneal spurs, slightly increased in size since the prior examination. Left foot: There is no fracture or dislocation. The joint spaces are normal. No erosions are present. Bone mineralization is normal. The soft tissues are normal. There is a moderate plantar calcaneal spur, unchanged. Procedure Note Sivakumar Buchanan MD - 02/02/2018 Exam: 1. XR ELBOW LEFT 2 VW 2. XR HAND LEFT 2 VW 3. XR HAND RIGHT 2 VW 4. XR FOOT LEFT 2 VW 5. XR FOOT RIGHT 2 VW 6. XR WRIST RIGHT 2 VW 7. XR WRIST LEFT 2 VW 8. 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 Findings: Right hand: There is no fracture or dislocation. The joint spaces are normal. There isminimal osteophyte formation at a few joints including the secondmetacarpal phalangeal and distal interphalangeal joints likelyrepresenting early osteoarthritis. No erosions are present. Bone mineralization is normal. The soft tissues are normal. Left hand: There is no fracture or dislocation. The joint spaces are normal. Thereare tiny osteophytes at the third metacarpophalangeal joint. No erosionsare present. Bone mineralization is normal. The soft tissues are normal. Right wrist: There is no fracture or dislocation. The joint spaces are normal. Noerosions are present. Bone mineralization is normal. The soft tissues arenormal. Left wrist: There is no fracture or dislocation. The joint spaces are normal. Noerosions are present. Bone mineralization is normal. The soft tissues arenormal. Right elbow: There is no fracture or dislocation. The joint spaces are normal. Noerosions are present. Bone mineralization is normal. The soft tissues arenormal. A subcentimeter sclerotic focus within the capitellum iscompatible with a bone island. Left elbow: There is no fracture or dislocation. The joint spaces are normal. Noerosions are present. Bone mineralization is normal. The soft tissues arenormal. Right foot: There is no fracture or dislocation. The joint spaces are normal. Noerosions are present. Bone mineralization is normal. The soft tissues arenormal. There are moderate plantar and small posterior calcaneal spurs,slightly increased in size since the prior examination. Left foot: There is no fracture or dislocation. The joint spaces are normal. Noerosions are present. Bone mineralization is normal. The soft tissues arenormal. There is a moderate plantar calcaneal spur, unchanged. IMPRESSION Impression: 1. Minimal osteophyte formation in both hands, likely representing earlyosteoarthritis. 2. Both wrists are normal. 3. Both elbows are normal. 4. Calcaneal spurs are present in both feet, but there is otherwise noradiographic evidence of arthritis. This report was electronically signed by SIVAKUMAR BUCHANAN MD on 12/24/201412:32 PM . Letty Vega MD DIAGNOSTIC NEREIDA GING ORDERABLES * XR ELBOW RIGHT 2VW (12/24/2014 12:08 PM SPECIAL EDUCATION ADMINISTRATOR) Anatomical Region Laterality Modality Upper Extremity Other Impressions 12/24/2014 12:32 PM SPECIAL EDUCATION ADMINISTRATOR Impression: 1. Minimal osteophyte formation in both hands, likely representing early osteoarthritis. 2. Both wrists are normal. 3. Both elbows are normal. 4. Calcaneal spurs are present in both feet, but there is otherwise no radiographic evidence of arthritis. This report was electronically signed by SIVAKUMAR BUCHANAN MD on 12/24/2014 12:32 PM . Narrative 12/24/2014 12:32 PM SPECIAL EDUCATION ADMINISTRATOR Exam: 1. XR ELBOW LEFT 2 VW 2. XR HAND LEFT 2 VW 3. XR HAND RIGHT 2 VW 4. XR FOOT LEFT 2 VW 5. XR FOOT RIGHT 2 VW 6. XR WRIST RIGHT 2 VW 7. XR WRIST LEFT 2 VW 8. 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 Findings: Right hand: There is no fracture or dislocation. The joint spaces are normal. There is minimal osteophyte formation at a few joints including the second metacarpal phalangeal and distal interphalangeal joints likely representing early osteoarthritis. No erosions are present. Bone mineralization is normal. The soft tissues are normal. Left hand: There is no fracture or dislocation. The joint spaces are normal. There are tiny osteophytes at the third metacarpophalangeal joint. No erosions are present. Bone mineralization is normal. The soft tissues are normal. Right wrist: There is no fracture or dislocation. The joint spaces are normal. No erosions are present. Bone mineralization is normal. The soft tissues are normal. Left wrist: There is no fracture or dislocation. The joint spaces are normal. No erosions are present. Bone mineralization is normal. The soft tissues are normal. Right elbow: There is no fracture or dislocation. The joint spaces are normal. No erosions are present. Bone mineralization is normal. The soft tissues are normal. A subcentimeter sclerotic focus within the capitellum is compatible with a bone island. Left elbow: There is no fracture or dislocation. The joint spaces are normal. No erosions are present. Bone mineralization is normal. The soft tissues are normal. Right foot: There is no fracture or dislocation. The joint spaces are normal. No erosions are present. Bone mineralization is normal. The soft tissues are normal. There are moderate plantar and small posterior calcaneal spurs, slightly increased in size since the prior examination. Left foot: There is no fracture or dislocation. The joint spaces are normal. No erosions are present. Bone mineralization is normal. The soft tissues are normal. There is a moderate plantar calcaneal spur, unchanged. Procedure Note Sivakumar Buchanan MD - 02/02/2018 Exam: 1. XR ELBOW LEFT 2 VW 2. XR HAND LEFT 2 VW 3. XR HAND RIGHT 2 VW 4. XR FOOT LEFT 2 VW 5. XR FOOT RIGHT 2 VW 6. XR WRIST RIGHT 2 VW 7. XR WRIST LEFT 2 VW 8. 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 Findings: Right hand: There is no fracture or dislocation. The joint spaces are normal. There isminimal osteophyte formation at a few joints including the secondmetacarpal phalangeal and distal interphalangeal joints likelyrepresenting early osteoarthritis. No erosions are present. Bone mineralization is normal. The soft tissues are normal. Left hand: There is no fracture or dislocation. The joint spaces are normal. Thereare tiny osteophytes at the third metacarpophalangeal joint. No erosionsare present. Bone mineralization is normal. The soft tissues are normal. Right wrist: There is no fracture or dislocation. The joint spaces are normal. Noerosions are present. Bone mineralization is normal. The soft tissues arenormal. Left wrist: There is no fracture or dislocation. The joint spaces are normal. Noerosions are present. Bone mineralization is normal. The soft tissues arenormal. Right elbow: There is no fracture or dislocation. The joint spaces are normal. Noerosions are present. Bone mineralization is normal. The soft tissues arenormal. A subcentimeter sclerotic focus within the capitellum iscompatible with a bone island. Left elbow: There is no fracture or dislocation. The joint spaces are normal. Noerosions are present. Bone mineralization is normal. The soft tissues arenormal. Right foot: There is no fracture or dislocation. The joint spaces are normal. Noerosions are present. Bone mineralization is normal. The soft tissues arenormal. There are moderate plantar and small posterior calcaneal spurs,slightly increased in size since the prior examination. Left foot: There is no fracture or dislocation. The joint spaces are normal. Noerosions are present. Bone mineralization is normal. The soft tissues arenormal. There is a moderate plantar calcaneal spur, unchanged. IMPRESSION Impression: 1. Minimal osteophyte formation in both hands, likely representing earlyosteoarthritis. 2. Both wrists are normal. 3. Both elbows are normal. 4. Calcaneal spurs are present in both feet, but there is otherwise noradiographic evidence of arthritis. This report was electronically signed by SIVAKUMAR BUCHANAN MD on 12/24/201412:32 PM . Letty Vega MD DIAGNOSTIC NEREIDA GING ORDERABLES * XR ELBOW LEFT 2VW (12/24/2014 12:08 PM SPECIAL EDUCATION ADMINISTRATOR) Anatomical Region Laterality Modality Upper Extremity Other Impressions 12/24/2014 12:32 PM SPECIAL EDUCATION ADMINISTRATOR Impression: 1. Minimal osteophyte formation in both hands, likely representing early osteoarthritis. 2. Both wrists are normal. 3. Both elbows are normal. 4. Calcaneal spurs are present in both feet, but there is otherwise no radiographic evidence of arthritis. This report was electronically signed by SIVAKUMAR BUCHANAN MD on 12/24/2014 12:32 PM . Narrative 12/24/2014 12:32 PM SPECIAL EDUCATION ADMINISTRATOR Exam: 1. XR ELBOW LEFT 2 VW 2. XR HAND LEFT 2 VW 3. XR HAND RIGHT 2 VW 4. XR FOOT LEFT 2 VW 5. XR FOOT RIGHT 2 VW 6. XR WRIST RIGHT 2 VW 7. XR WRIST LEFT 2 VW 8. 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 Findings: Right hand: There is no fracture or dislocation. The joint spaces are normal. There is minimal osteophyte formation at a few joints including the second metacarpal phalangeal and distal interphalangeal joints likely representing early osteoarthritis. No erosions are present. Bone mineralization is normal. The soft tissues are normal. Left hand: There is no fracture or dislocation. The joint spaces are normal. There are tiny osteophytes at the third metacarpophalangeal joint. No erosions are present. Bone mineralization is normal. The soft tissues are normal. Right wrist: There is no fracture or dislocation. The joint spaces are normal. No erosions are present. Bone mineralization is normal. The soft tissues are normal. Left wrist: There is no fracture or dislocation. The joint spaces are normal. No erosions are present. Bone mineralization is normal. The soft tissues are normal. Right elbow: There is no fracture or dislocation. The joint spaces are normal. No erosions are present. Bone mineralization is normal. The soft tissues are normal. A subcentimeter sclerotic focus within the capitellum is compatible with a bone island. Left elbow: There is no fracture or dislocation. The joint spaces are normal. No erosions are present. Bone mineralization is normal. The soft tissues are normal. Right foot: There is no fracture or dislocation. The joint spaces are normal. No erosions are present. Bone mineralization is normal. The soft tissues are normal. There are moderate plantar and small posterior calcaneal spurs, slightly increased in size since the prior examination. Left foot: There is no fracture or dislocation. The joint spaces are normal. No erosions are present. Bone mineralization is normal. The soft tissues are normal. There is a moderate plantar calcaneal spur, unchanged. Procedure Note Sivakumar Buchanan MD - 02/02/2018 Exam: 1. XR ELBOW LEFT 2 VW 2. XR HAND LEFT 2 VW 3. XR HAND RIGHT 2 VW 4. XR FOOT LEFT 2 VW 5. XR FOOT RIGHT 2 VW 6. XR WRIST RIGHT 2 VW 7. XR WRIST LEFT 2 VW 8. 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 Findings: Right hand: There is no fracture or dislocation. The joint spaces are normal. There isminimal osteophyte formation at a few joints including the secondmetacarpal phalangeal and distal interphalangeal joints likelyrepresenting early osteoarthritis. No erosions are present. Bone mineralization is normal. The soft tissues are normal. Left hand: There is no fracture or dislocation. The joint spaces are normal. Thereare tiny osteophytes at the third metacarpophalangeal joint. No erosionsare present. Bone mineralization is normal. The soft tissues are normal. Right wrist: There is no fracture or dislocation. The joint spaces are normal. Noerosions are present. Bone mineralization is normal. The soft tissues arenormal. Left wrist: There is no fracture or dislocation. The joint spaces are normal. Noerosions are present. Bone mineralization is normal. The soft tissues arenormal. Right elbow: There is no fracture or dislocation. The joint spaces are normal. Noerosions are present. Bone mineralization is normal. The soft tissues arenormal. A subcentimeter sclerotic focus within the capitellum iscompatible with a bone island. Left elbow: There is no fracture or dislocation. The joint spaces are normal. Noerosions are present. Bone mineralization is normal. The soft tissues arenormal. Right foot: There is no fracture or dislocation. The joint spaces are normal. Noerosions are present. Bone mineralization is normal. The soft tissues arenormal. There are moderate plantar and small posterior calcaneal spurs,slightly increased in size since the prior examination. Left foot: There is no fracture or dislocation. The joint spaces are normal. Noerosions are present. Bone mineralization is normal. The soft tissues arenormal. There is a moderate plantar calcaneal spur, unchanged. IMPRESSION Impression: 1. Minimal osteophyte formation in both hands, likely representing earlyosteoarthritis. 2. Both wrists are normal. 3. Both elbows are normal. 4. Calcaneal spurs are present in both feet, but there is otherwise noradiographic evidence of arthritis. This report was electronically signed by SIVAKUMAR BUCHANAN MD on 12/24/201412:32 PM . Letty Vega MD DIAGNOSTIC NEREIDA GING ORDERABLES * LAB MISC TEST (12/24/2014 11:57 AM SPECIAL EDUCATION ADMINISTRATOR) [facility] Reference [facility] Results SEE SCANNED REPORT [facility] REF LAB NON INTERF Other (qualifier value) 12/24/2014 11:57 AM SPECIAL EDUCATION ADMINISTRATOR 12/24/2014 12:12 PM SPECIAL EDUCATION ADMINISTRATOR Letty Vega MD LAB SEND OUT [facility] REF LAB NON INTERF * DNA ANTIBODY DS CRITHIDIA IFA (09/02/2013 2:37 PM CDT) Pathologist [facility] dsDNA Antibody Crithidia IFA NEGATIVE NEGATIVE [facility] Comment: This test was developed and its performance characteristics have been determined by [employer] [facility]. It has not been cleared or approved by the U.S. Food and Drug Administration. The FDA has determined that such clearance or approval is not necessary. Performance characteristics refer to the analytical performance of the test. dsDNA Antibody Crithidia Titer TNP-Reflex testing not required. [facility]) Comment: Test Performed at: [facility] [id number] [place] [address] CRISTIANE CLEMONS MD PHD 09/02/2013 2:37 PM CDT 09/02/2013 2:38 PM CDT Letty Vega MD LAB - SEROLOGY ORDERABLES Performing Organization Address [facility] de Phone Number [facility] * SS-A/SS-B (SJOGRENS) ANTIBODY PANEL (09/02/2013 2:37 PM CDT) Sjogren's Antibodies (SSA) <1.0 NEG <1.0 NEG AI [facility]) Sjogren's Antibodies (SSB) <1.0 NEG <1.0 NEG AI [facility] Comment: Test Performed at: [facility] [place] [id number] [place] [id number] MICHAEL WOO DO,MPH 09/02/2013 2:37 PM CDT 09/02/2013 2:38 PM CDT Letty Vega MD LAB - CHEMISTR Y ORDERABLES Performing Organization Address [facility] Co de Phone Number [facility] * HLA TYPING B27 (09/02/2013 2:37 PM CDT) HLA-B27 NEGATIVE NEGATIVE [facility]) Comment: Test Performed at: [facility] [id number] MICHAEL WOO DO, MPH 09/02/2013 2:37 PM CDT 09/02/2013 2:38 PM CDT Letty Vega MD LAB - CHEMISTR Y ORDERABLES [facility] * ALDOLASE (09/02/2013 2:37 PM CDT) Aldolase 4.9 < OR = 8.1 U/L [facility] Comment: Test Performed at: [facility] [place] [id number] [place] [address] MICHAEL WOO DO,MPH 09/02/2013 2:37 PM CDT 09/02/2013 2:38 PM CDT Letty Vega MD LAB - CHEMISTR Y ORDERABLES [facility] Care Teams Clinical Nursing Manager Relationship Specialty Start Date End Date Edilberto Estrada DO PCP - General 01/25/23
--- OUTSIDE RECORDS SUMMARY | 2025-01-14 08:53 | XMS_ITS | Clinical Summary ---
Author Organization [facility] Physician Office Building [address] [place] [address] Care Team Providers Care Stripper Color Name Role Phone Levon Mathew MD Primary Care Provider + [phone] Marlon Quiroz MD Unavailable [phone] Allergies Active Allergy Reactions Criticality Noted Date Comments Celecoxib Rash Reaction: RASH Codeine Nausea & Vomiting Reaction: NAUSEA Naproxen Rash Reaction: RASH Pollen Extracts Other (See comments) Reaction: NASAL CONGESTION, Medications metoprolol (LOPRESSOR) 50 mg tablet Take 50 mg by mouth 2 (two) times a day Active losartan (COZAAR) 100 mg tablet Take 100 mg by mouth daily Active amlodipine-frank rvastatin (CADUET) 10-40 mg per tablet Take 1 tablet by mouth daily Active atorvastatin (LIPITOR) 20 mg tablet Take 10 mg by mouth daily Active venlafaxine (EFFEXOR) 75 mg tablet Take 75 mg by mouth 2 (two) times a day Active ALPRAZolam (XANAX) 1 mg tablet Take 1 mg by mouth nightly as needed for anxiety Active etodolac (LODINE) 200 mg capsule Take 400 mg by mouth every 8 (eight) hours Act buddy gabapentin (NEURONTIN) 300 mg capsule Take 1 capsule (300 mg total) by mouth 3 (three) times a day 270 capsule 1 04/23/20 Active Additional Information Patient not taking.Reported on 12/30/2019 methylPREDNISo lone (MEDROL, BRIE,) 4 mg Dosepack follow package directions 21 tablet 06/19/20 19 Active Additional Information Patient not taking.Reported on 12/30/2019 LORazepam (ATIVAN) 2 mg tablet Take 1 pill 1 hour prior to your MRI, if still anxious, take the second pill 30 mins before your MRI 2 tablet 04/30/20 19 Active cyclobenzaprin e (FLEXERIL) 10 mg tablet cyclobenzaprine 10 mg tablet Active methylPREDNISo lone (MEDROL DOSEPACK) 4 mg Dosepack methylprednisolone 4 mg tablets in a dose pack Active acyclovir (ZOVIRAX) 400 mg tablet daily as needed Acti ve metoprolol XL (TOPROL-XL) 50 mg 24 hr tablet metoprolol succinate ER 50 mg tablet,extended release 24 hr Active nitrofurantoin monohydrate (MACROBID) 100 mg capsule every 12 hours Acti ve predniSONE (DELTASONE) 50 mg tablet prednisone 50 mg tablet Active zolpidem (AMBIEN) 10 mg tablet zolpidem 10 mg tablet TAKE 1 TABLET BY MOUTH AT BEDTIME Active amLODIPine (NORVASC) 10 mg tablet 12/29/19 20 Active hydroCHLOROthi azide (HYDRODIURIL) 12.5 mg tablet Take 12.5 mg by mouth daily 12/11/19 20 Active FLUoxetine (PROzac) 40 mg capsule 11/30/19 20 Active Active Problems Problem Noted Date Diagnosed Date 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 20 Cervical spondylosis with radiculopathy 06/06/20 19 Arthralgia of multiple joints 03/21/2014 Overview (02/09/2017): JOINT PAIN-MULT JTS Knee pain 02/21/2012 Surgical History Surgery Date Site/Laterality Comments KNEE ARTHROSCOPY Arthroscopy knee HYSTERECTOMY Hysterectomy TONSILLECTOMY Tonsillectomy APPENDECTOMY Medical History Medical History Date Comments Anemia Anemia Hypertension Hypertension Anxiety Arthritis Family History Medical History Relation Name Comments Rheum arthritis Maternal Grandfather Rheu matoid arthritis; Rheum arthritis Sister 2 Rheumatoid a rthritis; Colon cancer Neg Hx Colon polyps Neg Hx Relation Name Status Comments Maternal Grandfather Alive Sister 1 Alive Sister 2 Social History Tobacco Use Types Packs/Day Years Used Date Smoking Tobacco: Never Smokeless Tobacco: Never Alcohol Use Standard Drinks/Week Comments Yes 0 (1 standard drink = 0.6 oz pur e alcohol) occasionally Comments Unknown Sex and Gender Information Value Date Recorded Sex Assigned at Not on file Legal Sex Female 1: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 SHEET METAL JOURNEYMAN Gender Identity Not on file Sexual Orientation Not on file Obstetrics History Last Filed Vital Signs Vital Sign Reading Time Taken Comments Blood Pressure 126/77 12/30/2019 8:52 AM SHEET METAL JOURNEYMAN Pulse 63 12/30/2019 8:52 AM SHEET METAL JOURNEYMAN Temperature 36.4 C (97.5 F) 12/30/2019 8:52 AM SHEET METAL JOURNEYMAN Respiratory Rate 12 12/30/2019 8:52 AM SHEET METAL JOURNEYMAN Oxygen Saturation 98% 12/30/2019 8:52 AM SHEET METAL JOURNEYMAN Inhaled Oxygen Concentration - - Weight 91.8 kg (202 lb 6.4 oz) 12/30/2019 8:52 A M SHEET METAL JOURNEYMAN Height 162.9 cm (5' 4.13 ) 12/30/2019 8:52 AM CS T Body Mass Index 34.6 12/30/2019 8:52 AM SHEET METAL JOURNEYMAN Plan of Treatment Not on file Insurance [employer] [facility] [place] H[employer]/PPO Address: [address] [address] [place] [address] Care Teams Stripper Color Relationship Specialty Start Date End Date Levon Mathew MD PCP - General Internal Medicine 04/15/19 Marlon uQiroz MD [address] [place] [address] Surgeon General Surgery 12/30/19
--- OUTSIDE RECORDS SUMMARY | 2025-01-14 08:53 | XMS_ITS ---
Author Organization [facility] Address [address] [facility] [address] [place] [address] Care Team Providers Care Panel Raiser Operator Name Role Phone Eloisa Astorga Unavailable [phone] REASON FOR VISIT Medical and Billing Records Request Encounters Encounter Location Date Provider Diagnosis [facility] [employer] [facility] [address] [facility] [address] [facility] [address] [place] [address] 05/29/2024 Eloisa Astorga Plan Of Treatment No Information Progress Notes * JADEN GAYLE ADOB: [birth year] (54 yo F)Acc No.[id number]:05/29/2024 Patient: Farzana PICKENS JADEN Cedillo :1970 A ge:54 Y S ex:Female Address:[address] [place] [address], [address] * true * Date: Generated for Printi ng/Fasarahg/eTransmitting on: 0 01/14/2025 08:52 AM CDT
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
--- OUTSIDE RECORDS SUMMARY | 2025-01-14 08:53 | XMS_ITS | Referral Summary ---
Author Organization [facility] Physician Office Building [address] [place] [address] Care Team Providers Care Home Service Advisor Name Role Phone Levon Mathew MD Primary Care Provider + [phone] Marlon Quiroz MD Unavailable [phone] Allergies Active Allergy Reactions Criticality Noted Date [...] (02/09/2017): JOINT PAIN-MULT JTS Knee pain 02/21/2012 Social History Tobacco Use Types Packs/Day Years Used Date Smoking Tobacco: Never Smokeless Tobacco: Never Alcohol Use Standard Drinks/Week Comments Yes 0 (1 standard drink = 0.6 oz pur e alcohol) occasionally Comments Unknown Sex and Gender Information Value Date Recorded Sex Assigned at Not on file Legal 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 Gender Identity Not on file Sexual Orientation Not on file Last Filed Vital Signs Vital Sign Reading Time Taken Comments Blood Pressure 126/77 12/30/2019 8:52 AM 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 Pulse 63 12/30/2019 8:52 AM 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 Temperature 36.4 C (97.5 F) 12/30/2019 8:52 AM 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 Respiratory Rate 12 12/30/2019 8:52 AM 

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
--- OUTSIDE RECORDS SUMMARY | 2025-01-14 08:53 | XMS_ITS ---
Author Organization [facility] Address [address] [place] [address] Care Team Providers Care Agricultural Extension Agent Name Role Phone Tiana Toussaint Primary Care Provider Kenroy Thibodeaux Unavailable [phone] Tiana Toussaint MD Unavailable Unavailable Encounters Encounter Location Date Provider Diagnosis [facility] [address] [place] [address] 02/03/2024 Kenroy Thibodeaux Plan Of Treatment No Information Progress Notes * Stephanie MAURERDOB:1970 (54 yo F)Acc No.[id number]:02/03/2024 Patient: Stephanie AMOS :1970 A ge:54 Y S ex:Female Address:[address] [place] [id number] * true * Date: Generated for Isaak spaulding/Fernando/eTransmitting on: 0 01/14/2025 08:52 AM CDT
--- OUTSIDE RECORDS SUMMARY | 2025-01-14 08:53 | XMS_ITS | CONTINUITY OF CARE DOCUMENT ---
Author Name keith fanlatisha Address Unknown Organization [facility] Address [address] [place] [address] Phone [phone] Care Team Providers Care Livestock Broker Name Role Phone Tarik SALDIVAR, Katt Unavailable REGI CARMEN MD Unavailable [phone] REGI CARMEN MD Unavailable PROBLEMS Condition Status Date Provider Notes Hypertension active Katt Montanez MD Hyperlipidemia active Katt Montanez MD Obesity active Katt Montanez MD FAMILY HISTORY OF HEART DISEASE active Demario Mnotanez MD Chest pain-type to be , nl c ath in 2010, nl routine stress test and echo 01/19 active Katt Lino Fatigue active Katt Montanez MD ENCOUNTERS Date Type Provider Location Encounter Diag nosis - In-person encounter Office Visit Katt Montanez MD [place] - In-person encounter Office Visit Katt Montanez MD [facility] HypertensionHyperlipidemiaObesityFAMILY HISTORY OF HEART DISEASEChest pain-type to be , nl cath in 2010, nl routine stress test and echo 01/19Fatigue VITAL SIGNS Date Observation Value Provider Body Mass Index (Ratio) 34.53 kg/m2 Demario Montanez MD blood pressure, diastolic 79 mm[Hg] Fiorella Flynn blood pressure, systolic 123 mm[Hg] Ale Flynn oxygen saturation, oximetry 98 % Cresencio Flynn respiratory rate E&M 18 /min Rea Flynn pulse rate 65 /min Cresencio mcdowell weight E&M 201.2 [lb_av] Cresencio resendiz height E&M 64 [in_i] Cresencio mcdowell blood pressure, diastolic 80 mm[Hg] Be anaiy Granados blood pressure, systolic 140 mm[Hg] Bet sy Graandos Body Mass Index (Ratio) 34.19 kg/m2 Demario Montanez MD blood pressure, diastolic 75 mm[Hg] Fiorella Arandadmitri Flynn blood pressure, systolic 134 mm[Hg] Ale Flynn oxygen saturation, oximetry 98 % Cresencio Flynn respiratory rate E&M 18 /min Rea Flynn pulse rate 75 /min Cresencio mcdowell weight E&M 199.2 [lb_av] Cresencio resendiz height E&M 64 [in_i] Cresencio mcdowell ALLERGIES No Known Drug Allergies HISTORY OF MEDICATION USE Medication Status Instructions Dates Provider Indications Com ments ACIDOPHILUS PROBIOTIC TABLET active as needed Cresencio Flynn PROZAC 20 MG ORAL CAPSULE active Take One Once a Day. 0 Edilberto Manrique RN ATORVASTATIN CALCIUM 20 MG ORAL TABLET active Take One Once a Day. 6 Edilberto Manrique RN CPAUOTCY-IRN-7 0.2 MG/24HR TRANSDERMAL PATCH WEEKLY active Apply weekly 6 Katt Montanez MD VITAMIN B-12 1000 MCG ORAL TABLET active One tablet daily Cresencio Flynn VITAMIN C TABLET active 1000 mg once daily Cresencio Flynn FISH OIL 1200 MG ORAL CAPSULE active twice daily Cresencio Flynn MULTIVITAMINS ORAL CAPSULE active ONE TAB. DAILY Cresencio Flynn AMBIEN TABLET active at bed time Cresencio Flynn XANAX 1 MG ORAL TABLET active ONE TAB. DAILY as needed Cresencio Flynn AMLODIPINE BESYLATE 10 MG ORAL TABLET active po daily 6 Katt Montanez MD [place] POTASSIUM-HCTZ 100-12.5 MG ORAL TABLET active once daily Cresencio Gee METOPROLOL SUCCINATE ER 50 MG ORAL TABLET EXTENDED RELEASE 24 HOUR active one tab. daily Cresencio Flynn SOCIAL HISTORY Date Observation Value Provider social history reviewed E&M revi ewed - no changes required Katt Montanez MD smoking status Never smoker Cresencio Cintron smoking status Never smoker Deyanira Granados social history reviewed E&M revi ewed - no changes required Katt Montnaez MD smoking status Never smoker Cresencio [place] FUNCTIONAL STATUS Date Observation Value Provider periodic limb movement index absent (0) Deyanira Granados FAMILY HISTORY Family Member Condition Mother Family History of Hy pertension: Father Family History of Co ronary Artery Disease: Father Family History of Hy pertension: Father Family History of Di abetes: Father Family History of CV A or Stroke: INSURANCE PROVIDERS Payer name Policy type / Coverage type [place] red libertarian ID [facility] [id number] ADVANCE DIRECTIVES Name Date DISCUSSED - NO DECISION MADE TREATMENT PLAN Date Name Performer Cardiology Katt Montanez MD Cardiology Katt Montanez MD Cardiology Katt Montanez MD Cardiology Katt Montanez MD Cardiology Katt Montanez MD Cardiology Katt Montanez MD Cardiology Katt Montanez MD Cardiology Katt Montanez MD Cardiology Katt Montanez MD HISTORY OF PROCEDURES Procedure Date Procedure Name Provider Procedure Notes S tatus SNOMED-CT: [id number] Current Medications Documented Katt Montanez MD completed Stress EKG Magdaleno Duarte MD completed EKG Katt Montanez MD completed SNOMED-CT: [id number] Current Medications Documented Katt Montanez MD completed
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
[2025-01-14 13:26] LABS: Basophils Percent Auto 0.3 % (0.2-1.2); Eosinophils Absolute Auto 0.1 K/mm3 (0-0.3); Eosinophils Percent Auto 0.7 % (0-4.4); Hematocrit 40.8 % (37.0-47.0); Immature Granulocyte Absolute 0.04 K/mm3 (0.00-0.031); Immature Granulocyte Percent A 0.5 % (0-0.5); Lymphocytes Absolute Auto 2.05 K/mm3 (0.9-3.2); Lymphocytes Percent Auto 23.2 % (18.3-44.2); Mean Corpuscular HGB Conc 31.9 g/dl (32-36); Mean Corpuscular Hemoglobin 28.4 pg (26-34); Mean Corpuscular Volume 89.1 fl (80-100); Mean Platelet Volume 10.3 fl (7.4-10.4); Monocytes Absolute Auto 0.7 K/mm3 (0.1-0.6); Monocytes Percent Auto 7.9 % (2.6-8.5); Neutrophils Percent Auto 67.4 % (45.5-73.1); Platelet Count Result 302 k/mm3 (150-375); Red Blood Count 4.58 M/mm3 (4.2-5.4); Red Cell Distribution Width 13.4 % (11.5-14.5); White Blood Count 8.8 K/mm3 (4.5-10.0)
[2025-01-14 13:42] LABS: Alanine Aminotransferase 21 U/L (6-35); Albumin Level 4.5 g/dL (3.5-5.1); Alkaline Phosphatase 130 U/L (38-126); Anion Gap 13 mmol/L (4-12); Aspartate Amino Transferase 36 U/L (14-36); Bilirubin,Total 0.5 mg/dL (0.2-1.3); Blood Urea Nitrogen 14 mg/dL (7-17); Calcium 9.5 mg/dL (8.4-10.2); Carbon Dioxide 25 mmol/L (22-30); Chloride 105 mmol/L (98-107); Cholesterol 194 mg/dL (0-200); Estimated Glomerular Filt Rate > 60; Glucose 103 mg/dL (65-110); HDL Direct 35 mg/dL; Potassium 4.1 mmol/L (3.4-5.0); Sodium 143 mmol/L (137-145); Triglycerides 167 mg/dL (<150)
[2025-01-14 13:52] LABS: Vitamin D 25 Hydroxy 33.5 ng/mL
[2025-01-14 13:53] LABS: LDL Cholesterol Direct 109 mg/dL
[2025-01-14 14:10] LABS: Thyroid Stimulating Hormone 0.949 uIU/mL (0.465-4.680)
== END 2025-01-14 08:31 | disposition home or self-care (01) ==
LOC: ANHGOSHLAB 08:31
PROVIDERS: PCP Internal Medicine; Visit Provider Nurse Practitioner
DX: E78.2 Mixed hyperlipidemia (principal); I10 Essential (primary) hypertension; R53.83 Other fatigue; E55.9 Vitamin D deficiency, unspecified
CPT/HCPCS: 36415; 80053; 80061; 82306; 84443; 85025

== ENCOUNTER 2025-07-29 10:51 | Outpatient (CLI) | payer OTHER, SELFPAY ==
--- OUTSIDE RECORDS SUMMARY | 2025-07-29 11:46 | XMS_ITS | Encounter Summary ---
Author Organization [facility] Address [address] [place] [place] [address] Care Team Providers Care Endband Cutter Hand Name Role Phone Lorenzo Lindsay MD Primary Care Provider [phone] Edilberto Estrada DO Primary Care Provider [phone] Lorenzo Lindsay MD Primary Care Provider [phone] Edilberto Estrada DO Primary Care Provider [phone] Encounter Details Date Type Department Care Team (Late st Contact Info) Description 12/09/2022 Ophth Exam [facility] [address] [place] [address] Edie Casillas DO [address] [place] [address] Social History Tobacco Use Types Packs/Day Years [...] and heating? Not hard at all 12/08/2022 [facility] [place] of Occupat ional Health - Occupational Stress [...] place to sleep or slept in a nursing home (including now)? No 12/08/2022 Comments Unknown Sex and Gender Information Value Date Recorded Sex Assigned at Not on file Legal Sex Female 6:06 AM PARI MUTUEL TICKET CASHIER Gender Identity Not on file Sexual Orientation Not on file documented as of this encounter Functional Status * Is person deaf or have serious hearing difficulty? Answer Date of Assessment Author No 12/08/2022 2:27 AM Gavino Meek RN * Is person blind or have serious difficulty seeing? Answer Date of Assessment Author No 12/08/2022 2:27 AM Gavino Meek RN * Does person have serious difficulty walking/climbing stairs? Answer Date of Assessment Author No 12/08/2022 2:27 AM Gavino Meek RN * Does person have difficulty dressing/bathing? Answer Date of Assessment Author No 12/08/2022 2:27 AM Gavino Meek RN * Does person have difficulty doing errands alone? Answer Date of Assessment Author No 12/08/2022 2:27 AM Gavino Meek RN documented as of this encounter Mental Status * Does person have difficulty concentrating/remembering/making decisions? Answer Entry Date Author No 12/08/2022 2:27 AM Gavino Meek RN documented in this encounter Plan of Treatment Not on file documented as of this encounter Visit Diagnoses Not on filedocumented in this encounter Care Teams Endband Cutter Hand Relationship Specialty Start Date End Date Lorenzo Lindsay MD [address] [place] [id number] PCP - General 03/21/18 12/20/22 Edilberto Estrada DO [address] [place] [phone] PCP - General 12/21/22 01/10/23 Lorenzo Lindsay MD [address] [place] [phone] PCP - General 01/11/23 01/24/23 Edilberto Estrada DO [address] [place] [phone] PCP - General 01/25/23 documented as of this encounter
--- OUTSIDE RECORDS SUMMARY | 2025-07-29 11:46 | XMS_ITS | Clinical Summary ---
Author Organization [facility] [address] [place] [address] Care Team Providers Care Oil Spreader Operator Name Role Phone Levon Mathew MD Primary Care Provider + [phone] Marlon Quiroz MD Unavailable [phone] Allergies Active Allergy Reactions Criticality Noted Date [...] on file Legal Sex Female 1:02 AM OPTICAL GOODS DRILL OPERATOR Gender Identity Not on file Sexual Orientation Not on file Obstetrics History Last Filed Vital Signs Vital Sign Reading Time Taken Comments Blood Pressure 126/77 12/30/2019 8:52 AM OPTICAL GOODS DRILL OPERATOR Pulse 63 12/30/2019 8:52 AM OPTICAL GOODS DRILL OPERATOR Temperature 36.4 C (97.5 F) 12/30/2019 8:52 AM OPTICAL GOODS DRILL OPERATOR Respiratory Rate 12 12/30/2019 8:52 AM OPTICAL GOODS DRILL OPERATOR Oxygen Saturation 98% 12/30/2019 8:52 AM OPTICAL GOODS DRILL OPERATOR Inhaled Oxygen Concentration - - Weight 91.8 kg (202 lb 6.4 oz) 12/30/2019 8:52 A M OPTICAL GOODS DRILL OPERATOR Height 162.9 cm (5' 4.13) 12/30/2019 8:52 AM CS T Body Mass Index 34.6 12/30/2019 8:52 AM OPTICAL GOODS DRILL OPERATOR Plan of Treatment Not on file Insurance [employer] Care Teams Oil Spreader Operator Relationship Specialty Start Date End Date Levon Mathew MD PCP - General Internal Medicine 04/15/19 Marlon Quiroz MD [address] [place] [address] Surgeon General Surgery 12/30/19
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
[2025-07-29 18:59] LABS: Add Urine Microscopic? NO; Appearance Urine Clear (Clear); Glucose Urine UA Negative (Negative); Leukocyte Esterase Ur Negative LEU/UL (Negative); Nitrate Urine Negative (Negative); Specific Grav Ur 1.015 (1.001-1.035)
[2025-07-29 18:59] LABS: Alanine Aminotransferase 23 U/L (6-35); Albumin Level 4.1 g/dL (3.5-5.1); Alkaline Phosphatase 109 U/L (38-126); Anion Gap 9 mmol/L (4-12); Aspartate Amino Transferase 35 U/L (14-36); Bilirubin,Total 0.4 mg/dL (0.2-1.3); Blood Urea Nitrogen 12 mg/dL (7-17); Calcium 9.2 mg/dL (8.4-10.2); Carbon Dioxide 24 mmol/L (22-30); Chloride 105 mmol/L (98-107); Estimated Glomerular Filt Rate > 60; Glucose 91 mg/dL (65-110); Potassium 4.1 mmol/L (3.4-5.0); Sodium 138 mmol/L (137-145); Total Protein 7.2 g/dL (6.3-8.2)
[2025-07-29 19:26] LABS: Hematocrit 37.9 % (37.0-47.0); Hemoglobin 12.4 g/dL (12.0-15.0); Immature Granulocyte Percent A 0.4 % (0-0.5); Lymphocytes Absolute Auto 2.45 K/mm3 (0.9-3.2); Mean Corpuscular HGB Conc 32.7 g/dl (32-36); Mean Corpuscular Hemoglobin 28.2 pg (26-34); Mean Corpuscular Volume 86.3 fl (80-100); Nucleated Red Blood Cells Absolute Auto 0.000 K/mm3 (0.0-0.012); Nucleated Red Blood Cells Perc 0.0 % (0.0-0.2); Platelet Count Result 299 k/mm3 (150-375); Red Blood Count 4.39 M/mm3 (4.2-5.4); White Blood Count 10.3 K/mm3 (4.5-10.0)
[2025-07-29 19:51] LABS: Thyroid Stimulating Hormone 0.934 uIU/mL (0.465-4.680)
[2025-07-30 09:44] LABS: CRP 1.9 mg/dL (<1.0)
[2025-07-30 10:50] LABS: Creatine Kinase 42 U/L (30-135); Magnesium 2.3 mg/dL (1.6-2.3)
[2025-07-31 07:09] LABS: ANA by IFA Rfx Titer/Pattern Positive (.)
== END 2025-07-29 10:52 | disposition home or self-care (01) ==
LOC: ANHGOSHLAB 10:52
PROVIDERS: PCP Internal Medicine; Visit Provider Nurse Practitioner
DX: M35.3 Polymyalgia rheumatica (principal)
CPT/HCPCS: 36415; 80053; 81003; 82550; 83735; 84443; 85025; 85652; 86038; 86140; 86430

== ENCOUNTER 2025-10-12 15:31 | Outpatient (CLI) | payer OTHER, SELFPAY ==
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
[2025-10-12 19:02] LABS: Add Urine Microscopic? YES; Appearance Urine Clear (Clear); Glucose Urine UA Negative (Negative); Leukocyte Esterase Ur Trace LEU/UL (Negative); Need Manual Microscopic Reviewed; Nitrate Urine Positive (Negative); Non Pathogenic Casts 0-2; Specific Grav Ur 1.019 (1.001-1.035)
== END 2025-10-12 15:32 | disposition home or self-care (01) ==
LOC: ANHGOSHLAB 15:32
PROVIDERS: PCP Internal Medicine; Visit Provider Nurse Practitioner
DX: R30.0 Dysuria (principal)
CPT/HCPCS: 81001; 87086